=== PATIENT | male | born 1975 | race Caucasian/White ===

== ENCOUNTER 2016-10-23 14:24 | Emergency (ER) | payer OTHER ==
[2016-10-23 15:03] VITALS: BP 132/87
--- NOTE | 2016-10-23 15:09 | EDM.PDOC ---
ED HPI Trauma - General Chief Complaint: Lower Extremity Injury/Pain Stated Complaint: RIGHT KNEE INJURY Time Seen by Provider: 10/23/16 15:08 Source: Reports: Patient History Limitations: Reports: No limitations - History of Present Illness INITIAL COMMENTS - FREE TEXT/NARRATIVE: Patient is a 41-year-old male who presents the ED complaining of right medial knee discomfort. Yesterday with walking he felt a popping/clicking sensatoin with moderate discomfort to the medial aspect of right knee increased with weightbearing. There is no pain with flexion extension at the knee. He has minimal pain at rest. He's been taking Tylenol and ibuprofen with minimal relief. He has been applying warm compresses and ice also. States pain is minimal with nonweightbearing. Presents to the ED utilizing one crutch with weight placement to the affected knee. States approximately 3 wks ago he was seen by Dr. Martin [facility] and had right knee injection. He's been told he has degenerative joint disease and requires knee replacement in the future. Denies any swelling, bruising, recent trauma, or any additional complaints. Occurred When: yesterday Occurred Where: other Method of Injury: other (walking) Severity: moderate (With weightbearing) Pain/Injury Location: Reports: lower extremity, right (Knee) Associated Symptoms: Reports: trouble walking (Secondary to pain to the right medial aspect of the knee.) Allergies/ADRs: Allergies Iodinated Contrast Media - Oral and [Iodinated Contrast Media - IV Dye] Allergy (Mild, Verified 09/24/16 17:51) Itching Mild itching around eyes/face after injecting tramadol Allergy (Verified 09/24/16 17:51) Chest Tightness colcichine Allergy (Uncoded 09/15/16 20:52) Other Home Medications: Ambulatory Orders Methylphenidate [Concerta] 54 mg PO DAILY 12/23/14 [Confirmed 10/23/16] Omeprazole 20 mg PO DAILY 12/23/14 [Confirmed 10/23/16] Venlafaxine [Effexor XR] 150 mg PO DAILY 12/23/14 [Confirmed 10/23/16] Losartan [Cozaar] 25 mg PO DAILY 12/09/15 [Confirmed 10/23/16] Allopurinol. 300 mg PO DAILY 02/20/16 [Confirmed 10/23/16] Ibuprofen [Motrin] 800 mg PO Q8H PRN #20 tablet 02/22/16 [Confirmed 10/23/16] Diltiazem [Cardizem CD] 240 mg PO ONETIME #1 cap.cd 03/27/16 [Confirmed 10/23/16 ] Gabapentin [Neurontin] 600 mg PO TID #90 cap 04/03/16 [Confirmed 10/23/16] Rosuvastatin Calcium [Crestor] 40 mg PO DAILY 08/21/16 [Confirmed 09/24/16] Testosterone Micronized 200 unit IM ASDIRECTED 08/21/16 [Confirmed 10/23/16] Past Medical History HEENT History: Reports: Sinusitis Cardiovascular History: Reports: High cholesterol, Hypertension Respiratory History: Reports: Sleep apnea Gastrointestinal History: Reports: GERD Genitourinary History: Reports: None Musculoskeletal History: Reports: Back pain, chronic, Gout Neurological History: Reports: None Psychiatric History: Reports: Anxiety, Depression Endocrine/Metabolic History: Reports: Obesity/BMI 30+ Hematologic History: Reports: None Immunologic History: Reports: None Oncologic (Cancer) History: Reports: None Dermatologic History: Reports: None - Infectious Disease History Infectious Disease History: Reports: Chicken pox, Measles - Past Surgical History HEENT Surgical History: Reports: Adenoidectomy, Tonsillectomy GI Surgical History: Reports: Hernia, abdominal Neurological Surgical History: Reports: Lumbar spine Musculoskeletal Surgical History: Reports: Arthroscopic knee, Shoulder surgery Social & Family History - Family History Family Medical History: Noncontributory - Tobacco Use Smoking Status *Q: Current Every Day Smoker Years of Tobacco use: 12 Packs/Tins Daily: 1 Used Tobacco, but Quit: Yes Month Tobacco Last Used: 1 Second Hand Smoke Exposure: No - Caffeine Use Caffeine Use: Reports: Coffee, Energy drinks, Soda, Tea - Alcohol Use Days Per Week of Alcohol Use: 4 Number of Drinks Per Day: 3 Total Drinks Per Week: 12 - Recreational Drug Use Recreational Drug Use: No - Living Situation & Occupation Living situation: Reports: , with spouse, with family (2 kids) 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 Denies: joint swelling Skin: Denies: bruising, erythema Neurological: Reports: difficulty walking (Secondary to pain right knee). Denies: numbness, tingling Trauma Exam - Physical Exam Exam: See Below Exam Limited By: No limitations General Appearance: Reports: alert, WD/WN, mild distress Ears: Reports: hearing grossly normal Nose: Reports: normal inspection Throat/Mouth: Reports: Normal voice, No airway compromise Neck: Reports: normal inspection Respiratory Exam: Reports: no respiratory distress, lungs clear, normal breath sounds, no accessory muscle use Cardiovascular: Reports: normal peripheral pulses, regular rate, rhythm, no murmur Extremities: Reports: other (Right knee: No swelling or bruising noted. Increased pain with palpation of the medial aspect the joint. No pain with flexion and extension of the knee. Increased pain medially with externally rotating the right leg with extension. 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 10/23/16 15:09 10/23/16 15:40 x-ray of the right knee did not elicit any acute bony abnormalities. Degenerative changes noted. Findings on examination concerning for meniscus injury. Patient has a history of degenerative joint disease requiring knee injections every [address] Martin at [facility]. Will discharge patient home with an Vinnie wrap applied to the right knee and set of crutches. Instructions as documented on discharge. Departure - Departure Time of Disposition: 15:41 Disposition: Home, Self-Care 01 Condition: good Clinical Impression: Knee pain, right Qualifiers: Chronicity: acute Qualified Code(s): M25.561 - Pain in right knee Instructions: Knee Pain Referrals: Marquise,Tamica M, [facility]NER [Primary Care Provider] - Marko Arevalo MD [Physician] - Andres Wagner MD [Physician] - Forms: ED Department Discharge, Return to Work/School Form Additional Instructions: As discussed x-ray of the right knee did not reveal any acute bony abnormalities. Degenerative changes noted. Will have you wear Vinnie wrap to the right knee with utilization of crutches until the discomfort subsided. Suggest nonweightbearing toe-touch only for balance for the next 3-5 days advancing weight as tolerated. Apply ice to the affected areas 6 times daily, 20 minutes in duration, do not place ice directly on the skin. Elevate when able to reduce swelling and pain. Take Tylenol and ibuprofen alternating fashion for discomfort. Followup with orthopedic surgeon of your choice for further evaluation and treatment in the next 10-14 days. Return back to the ED for any new or worsening symptoms. - My Orders Last 24 Hours: My Active Orders 10/23/16 15:09 Knee Min 4V Rt [CR] Stat 10/23/16 15:47 DME for Discharge [COMM] Stat - Assessment/Plan Last 24 Hours: My Active Orders 10/23/16 15:09 Knee Min 4V Rt [CR] Stat 10/23/16 15:47 DME for Discharge [COMM] Stat
--- NOTE | 2016-10-24 07:08 | CR ---
Right knee: Four views of the right knee were obtained. Comparison: Previous right knee study of 06/22/15. Mild medial joint space narrowing is seen. Lateral joint space is preserved. No joint effusion is seen. No acute fracture or other bony abnormality is seen. Impression: 1. Mild medial joint space narrowing. 2. No additional abnormality is seen on right knee exam. Diagnostic code #2
== END 2016-10-23 16:15 | disposition home or self-care (01) ==
LOC: JD.ED 14:24
DX: M25.561 Pain in right knee (principal); I10 Essential (primary) hypertension; E78.00 Pure hypercholesterolemia, unspecified; G47.30 Sleep apnea, unspecified; K21.9 Gastro-esophageal reflux disease without esophagitis; F41.8 Other specified anxiety disorders; E66.9 Obesity, unspecified; Z79.899 Other long term (current) drug therapy; F17.210 Nicotine dependence, cigarettes, uncomplicated; Z88.5 Allergy status to narcotic agent; Z91.041 Radiographic dye allergy status; Z68.42 Body mass index [BMI] 45.0-49.9, adult
CPT/HCPCS: 73564-26-RT; 73564-RT; 99282; 99283

== ENCOUNTER 2016-12-23 11:46 | Emergency (ER) | payer OTHER ==
[2016-12-23 11:59] VITALS: BP 180/106
[2016-12-23] MEDS ORDERED: Ketorolac 60 MG/2 ML SDV IM ONE (12:36)
--- NOTE | 2016-12-23 12:45 | EDM.PDOC ---
ED HPI Trauma - General Chief Complaint: Upper Extremity Injury/Pain Stated Complaint: LEFT SHOULDER PAIN Time Seen by Provider: 12/23/16 12:20 Source: Reports: Patient History Limitations: Reports: No limitations - History of Present Illness INITIAL COMMENTS - FREE TEXT/NARRATIVE: Patient is a 41 y/o male who presents to the E.D. complaining of nontraumatic left shoulder pain. Pain is localized to the AC joint worsened with palpation and movement. States he was evaluated by Naren Camarillo and provided a prescription (narcotic) pain medications with no improvement to pain. Has been utilizing ibuprofen and tylenol with minimal improvement as well Ice and lidocaine patch. States he has appt with Dr. Martin this coming Friday. States he has no prior injury to affected shoulder. Denies any additional complaints. Severity: mild, moderate Pain/Injury Location: Reports: upper extremity, left Associated Symptoms: Reports: no other symptoms Allergies/ADRs: Allergies Iodinated Contrast Media - Oral and [Iodinated Contrast Media - IV Dye] Allergy (Mild, Verified 12/23/16 11:59) Itching Mild itching around eyes/face after injecting tramadol Allergy (Verified 12/23/16 11:59) Chest Tightness colcichine Allergy (Uncoded 12/23/16 11:59) Other Home Medications: Ambulatory Orders Methylphenidate [Concerta] 54 mg PO DAILY 12/23/14 [Confirmed 12/23/16] Omeprazole 20 mg PO DAILY 12/23/14 [Confirmed 12/23/16] Venlafaxine [Effexor XR] 150 mg PO DAILY 12/23/14 [Confirmed 12/23/16] Losartan [Cozaar] 25 mg PO DAILY 12/09/15 [Confirmed 12/23/16] Allopurinol. 300 mg PO DAILY 02/20/16 [Confirmed 12/23/16] Gabapentin [Neurontin] 600 mg PO TID #90 cap 04/03/16 [Confirmed 12/23/16] Rosuvastatin Calcium [Crestor] 40 mg PO DAILY 08/21/16 [Confirmed 12/23/16] Testosterone Micronized 200 unit IM ASDIRECTED 08/21/16 [Confirmed 12/23/16] Acetaminophen/HYDROcodone [[place] 325-5 MG] 1 tab PO Q4H PRN 12/23/16 [Confirmed 12/23/16] Cetirizine [ZyrTEC] 10 mg PO DAILY 12/23/16 [Confirmed 12/23/16] Diltiazem [Cardizem CD] 240 mg PO DAILY 12/23/16 [Confirmed 12/23/16] Ibuprofen 800 mg PO Q8HR PRN #15 tablet 12/23/16 Ibuprofen [Motrin] 600 mg PO Q8H PRN 12/23/16 [Confirmed 12/23/16] Past Medical History HEENT History: Reports: Sinusitis Cardiovascular History: Reports: High cholesterol, Hypertension Respiratory History: Reports: Sleep apnea Gastrointestinal History: Reports: GERD Genitourinary History: Reports: None Musculoskeletal History: Reports: Back pain, chronic, Gout, Other (see below) Other Musculoskeletal History: shoulder pain Neurological History: Reports: None Psychiatric History: Reports: Anxiety, Depression Endocrine/Metabolic History: Reports: Obesity/BMI 30+ Hematologic History: Reports: None Immunologic History: Reports: None Oncologic (Cancer) History: Reports: None Dermatologic History: Reports: None - Infectious Disease History Infectious Disease History: Reports: Chicken pox, Measles - Past Surgical History HEENT Surgical History: Reports: Adenoidectomy, Tonsillectomy GI Surgical History: Reports: Hernia, abdominal Neurological Surgical History: Reports: Lumbar spine Musculoskeletal Surgical History: Reports: Arthroscopic knee, Shoulder surgery Social & Family History - Family History Family Medical History: Noncontributory - Tobacco Use Smoking Status *Q: Current Every Day Smoker Years of Tobacco use: 10 Packs/Tins Daily: 1 Used Tobacco, but Quit: Yes Month Tobacco Last Used: 1 Second Hand Smoke Exposure: No - Caffeine Use Caffeine Use: Reports: Soda - Alcohol Use Days Per Week of Alcohol Use: 4 Number of Drinks Per Day: 3 Total Drinks Per Week: 12 - Recreational Drug Use Recreational Drug Use: No - Living Situation & Occupation Living situation: Reports: , with spouse, with family (2 kids) 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 Denies: arm pain Neurological: Denies: Numbness, Tingling, Weakness Trauma Exam - Physical Exam Exam: See Below Exam Limited By: No limitations General Appearance: Reports: alert, WD/WN, no apparent distress Head: Reports: atraumatic, normocephalic Ears: Reports: hearing grossly normal Nose: Reports: normal inspection Throat/Mouth: Reports: Normal voice, No airway compromise Neck: Reports: non-tender, full range of motion, normal alignment, normal inspection Respiratory Exam: Reports: no respiratory distress, lungs clear, normal breath sounds, no accessory muscle use, chest non-tender Cardiovascular: Reports: normal peripheral pulses, regular rate, rhythm Extremities: Reports: no evidence of injury, normal range of motion, pain with movement (flexion/extension/abduction/adduction of the left shoulder/arm. Pin point tenderness to AC joint with no swelling, asymmetry, bruising present. ), tenderness Neurologic: Reports: no motor/sensory deficits, alert, normal mood/affect, oriented x 3 Skin: Reports: Normal color, Warm/dry Course - Vital Signs Last Recorded V/S: Last Vital Signs Temp 97.7 F 12/23/16 11:53 Pulse 92 12/23/16 11:53 Resp 18 12/23/16 11:53 BP 180/106 H 12/23/16 11:53 Pulse Ox 97 12/23/16 11:53 - Orders/Labs/Meds Orders: Active Orders 24 hr Category Date Time Status DME for Discharge [COMM] Stat Oth 12/23/16 12:37 Ordered Meds: Medications Discontinued Medications Generic Name Dose Route Start Last Admin Trade Name Freq PRN Reason Stop Dose Admin Ketorolac Tromethamine 60 mg 12/23/16 12:36 12/23/16 12:54 Toradol IM 12/23/16 12:37 60 mg ONETIME ONE Administration - Re-Assessments/Exams Free Text/Narrative Re-Assessment/Exam: 12/23/16 12:37 Physical examination elicited pain to the AC joint. Positive santoro and neers test. No weakness noted to the left shoulder in comparison to the right. No giving out noted. Negative drop arm or empty the can test. Ordered toradol 60mg IM. Will discharge patient home with sling and prescription for ibuprofen 800mg PO. Departure - Departure Time of Disposition: 12:45 Disposition: Home, Self-Care 01 Condition: good Clinical Impression: Impingement syndrome, shoulder, left Prescriptions: Ibuprofen 800 mg PO Q8HR PRN #15 tablet PRN Reason: Pain Instructions: Impingement Syndrome, Rotator Cuff, Bursitis With Rehab-SportsMed Referrals: Tamica Camarillo NP [Primary Care Provider] - Forms: ED Department Discharge Additional Instructions: Take the ibuprofen as prescribed for pain. Take tylenol as well in alternating fashion. Utilize ice to the affected area as needed. Refrain from any activities that cause worsening pain. Utilize the sling for the next three days taking it off while resting, showering, and sleeping. Keep appointment with Dr. Newberry as scheduled for this week. See PCP for further pain complaints. Take ibuprofen with food. If develop stomach irritation take pepcid daily. Return to the E.D. as needed for any new or worsening symptoms. - My Orders Last 24 Hours: My Active Orders 12/23/16 12:37 DME for Discharge [COMM] Stat - Assessment/Plan Last 24 Hours: My Active Orders 12/23/16 12:37 DME for Discharge [COMM] Stat
== END 2016-12-23 13:15 | disposition home or self-care (01) ==
LOC: JD.ED 11:46
DX: M75.42 Impingement syndrome of left shoulder (principal); F17.210 Nicotine dependence, cigarettes, uncomplicated; I10 Essential (primary) hypertension; E78.00 Pure hypercholesterolemia, unspecified; G47.30 Sleep apnea, unspecified; K21.9 Gastro-esophageal reflux disease without esophagitis; F41.8 Other specified anxiety disorders; E66.9 Obesity, unspecified; Z79.899 Other long term (current) drug therapy; Z98.890 Other specified postprocedural states; Z88.5 Allergy status to narcotic agent; Z88.8 Allergy status to other drugs, medicaments and biological substances; Z91.041 Radiographic dye allergy status
CPT/HCPCS: 96372; 99283; J1885

== ENCOUNTER 2017-02-13 06:12 | Day surgery (SDC) | payer OTHER ==
[~2017-02-13 06:12] MED LIST: Lactated Ringers 1,000 ML IV SCH; Lidocaine 1%/Sod Bicarbonate in NS 8.4% 1 ML Syringe PRN; Sodium Chloride 0.9% 10 ML Syringe FLUSH PRN
[2017-02-13] MEDS ORDERED: Propofol 200 MG/20 ML SDV ONE ×2 (06:23→07:41)
[2017-02-13] MEDS ORDERED: fentaNYL 100 MCG/2 ML SDV ONE ×2 (06:24→07:15)
[2017-02-13] MEDS ORDERED: Midazolam 1 MG/ML 2 ML SDV ONE ×2 (06:24→07:09)
[2017-02-13] MEDS ORDERED: Lidocaine 1% 50 ML MDV ONE (06:42)
[2017-02-13] MEDS ORDERED: Bupivacaine 0.25% 30 ML SDV ONE (06:43)
--- NOTE | 2017-02-13 06:43 | PCM.PREANE ---
Preanesthetic Assessment - Procedure Proposed Procedure: Bilateral carpal tunnel release - Anesthesia/Transfusion/Family Hx Anesthesia History: Prior Anesthesia Without Reaction Family History of Anesthesia Reaction: No Transfusion History: No Prior Transfusion(s) Intubation History: History of Difficulty Intubation (hx of "small wind pipe", have "to use a womens breathing tube." ) - Review of Systems General: No Symptoms Pulmonary: Shortness of Breath, Cough Cardiovascular: No Symptoms Gastrointestinal: No symptoms Neurological: No Symptoms Other: Reports: None - Physical Assessment NPO Status Date: 02/12/17 NPO Status Time: 19:00 Pulse: 102 O2 Sat by Pulse Oximetry: 95 Respiratory Rate: 17 Blood Pressure: 158/95 Temperature: 36.5 C Height: 1.78 m Weight: 150.139 kg ASA Class: 2 Mental Status: Alert & Oriented x3 Airway Class: Mallampati = 2 Dentition: Reports: Normal Dentition Thyro-Mental Finger Breadths: 3 Mouth Opening Finger Breadths: 3 ROM/Head Extension: Full Lungs: Clear to auscultation, Normal respiratory effort Cardiovascular: Regular Rate, Regular Rhythm - Allergies Allergies/Adverse Reactions: Allergies Allergy/AdvReac Type Severity Reaction Status Date / Time Iodinated Contrast- Oral and Allergy Mild Itching Verified 02/12/17 13:43 IV Dye [Iodinated Contrast Media - IV Dye] colchicine Allergy Other Verified 02/12/17 13:43 tramadol Allergy Other Verified 02/12/17 13:43 - Blood Blood Available: No Product(s) Available: None - Acknowledgements Anesthesia Type Planned: MAC Pt an Appropriate Candidate for the Planned Anesthesia: Yes Alternatives and Risks of Anesthesia Discussed w Pt/Guardian: Yes Pt/Guardian Understands and Agrees with Anesthesia Plan: Yes PreAnesthesia Questionnaire HEENT History: Reports: Allergic Rhinitis, Sinusitis, Other (See Below) Other HEENT History: TMJ Cardiovascular History: Reports: High Cholesterol, Hypertension Respiratory History: Reports: SOB Other Respiratory History: Costochondral pain Gastrointestinal History: Reports: Other (See Below) Other Gastrointestinal History: Left upper quadrant abdominal pain Genitourinary History: Reports: None Other Genitourinary History: Testicular hypofunction Musculoskeletal History: Reports: Back Pain, Chronic, Gout, Other (See Below) Other Musculoskeletal History: Cubital tunnel syndrome, right knee pain, acute medial meniscus tear Neurological History: Reports: None Psychiatric History: Reports: ADD, Depression Endocrine/Metabolic History: Reports: Hypothyroidism, Vitamin D Deficiency, Other (See Below) Other Endocrine/Metabolic History: Thyroid nodule, elevated parathyroid hormone Hematologic History: Reports: None Immunologic History: Reports: None Oncologic (Cancer) History: Reports: None Dermatologic History: Reports: Other (See Below) Other Dermatologic History: Pilonidal cyst - Infectious Disease History Infectious Disease History: Reports: None - Past Surgical History Head Surgeries/Procedures: Reports: None HEENT Surgical History: Reports: Adenoidectomy, Tonsillectomy Cardiovascular Surgical History: Reports: None Respiratory Surgical History: Reports: None GI Surgical History: Reports: Hernia, Abdominal Male Surgical History: Reports: None Endocrine Surgical History: Reports: None Neurological Surgical History: Reports: None Musculoskeletal Surgical History: Reports: Arthroscopic Knee, Shoulder Surgery Oncologic Surgical History: Reports: None Dermatological Surgical History: Reports: None - SUBSTANCE USE Smoking Status *Q: Current Every Day Smoker Tobacco Use Within Last Twelve Months: Snuff/Dip Second Hand Smoke Exposure: No Days Per Week of Alcohol Use: 7 Number of Drinks Per Day: 4 Total Drinks Per Week: 28 Recreational Drug Use History: No - HOME MEDS Home Medications: Home Meds Methylphenidate [Concerta] 54 mg PO DAILY 12/23/14 [History] Omeprazole 20 mg PO DAILY 12/23/14 [History] Venlafaxine [Effexor XR] 150 mg PO DAILY 12/23/14 [History] Losartan [Cozaar] 25 mg PO BEDTIME 12/09/15 [History] Gabapentin [Neurontin] 600 mg PO TID #90 cap 04/03/16 [Rx] Testosterone Micronized 200 unit IM ASDIRECTED 08/21/16 [History] Cetirizine [ZyrTEC] 10 mg PO BEDTIME 12/23/16 [History] Diltiazem [Cardizem CD] 240 mg PO DAILY 12/23/16 [History] Ibuprofen [Motrin] 600 mg PO Q8H PRN 12/23/16 [History] Acetaminophen [Tylenol Extra Strength] 500 - 1,000 mg PO Q4H PRN 02/12/17 [ History] Albuterol Sulfate [Proair Respiclick] 2 puff IH Q4H PRN 02/12/17 [History] Allopurinol [Zyloprim] 300 mg PO BEDTIME 02/12/17 [History] Budesonide/Formoterol [Symbicort 160-4.5 MCG] 2 puff INH BID 02/12/17 [History] Rosuvastatin Calcium [Crestor] 40 mg PO BEDTIME 02/12/17 [History] atorvaSTATin [Lipitor] 10 mg PO BEDTIME 02/12/17 [History] - CURRENT (IN HOUSE) MEDS Current Meds: Current Medications Lactated Ringer's (Ringers, Lactated) 1,000 mls @ 125 mls/hr IV ASDIRECTED ALIN Stop: 02/13/17 23:00 Lidocaine/Sodium Bicarbonate (Buffered Lidocaine 1% In Ns 8.4%) 0.25 ml .XX ONETIME PRN PRN Reason: Prior to IV Start Stop: 02/13/17 18:00 Sodium Chloride (Saline Flush) 10 ml FLUSH ASDIRECTED PRN PRN Reason: Keep Vein Open Stop: 02/13/17 18:00 Discontinued Medications Fentanyl (Sublimaze) Confirm Administered Dose 100 mcg .ROUTE .STK-MED ONE Stop: 02/13/17 06:25 Midazolam HCl (Versed 1 Mg/Ml) Confirm Administered Dose 2 mg .ROUTE .STK-MED ONE Stop: 02/13/17 06:25 Propofol (Diprivan 20 Ml) Confirm Administered Dose 400 mg .ROUTE .STK-MED ONE Stop: 02/13/17 06:24
--- NOTE | 2017-02-13 08:02 | PCM48HPAN ---
Post Anesthesia Note - EVALUATION WITHIN 48HRS OF ANESTHETIC Vital Signs in Normal Range: Yes Patient Participated in Evaluation: Yes Respiratory Function Stable: Yes Airway Patent: Yes Cardiovascular Function Stable: Yes Hydration Status Stable: Yes Pain Control Satisfactory: Yes Nausea and Vomiting Control Satisfactory: Yes Mental Status Recovered: Yes
[2017-02-13 08:13] VITALS: BP 135/93
[2017-02-13] MEDS ORDERED: Acetaminophen/HYDROcodone 325-5 MG Tab PO ONE (09:15)
--- NOTE | 2017-02-14 12:51 | PCM.OPNOTE ---
- General Post-Op/Procedure Note Date of Surgery/Procedure: 02/13/17 Operative Procedure(s): bilateral carpal tunnel release Pre Op Diagnosis: bilateral median nerve compression neuropathy Post-Op Diagnosis: Same Anesthesia Technique: Local, MAC Primary Surgeon: Marko Arevalo Anesthesia Provider: Luiz Cristobal Vocational Nurse Lvn: Teena Ruiz EBL in mLs: 5 Complications: None Condition: Good
--- NOTE | 2017-02-14 14:03 | OR ---
DATE OF OPERATION: 02/13/2017 SURGEON: Marko Arevalo MD OPERATION PERFORMED: Bilateral carpal tunnel release. PREOPERATIVE DIAGNOSIS: Bilateral median nerve compression neuropathy. POSTOPERATIVE DIAGNOSIS: Bilateral median nerve compression neuropathy. ANESTHESIA: Local MAC. ANESTHESIA PROVIDER: Luiz Cristobal. PRODUCE LABORER: Teena Ruiz PA-C. ESTIMATED BLOOD LOSS: Less than 5 mL. COMPLICATIONS: None. CONDITION: Stable. DESCRIPTION OF PROCEDURE: The patient was identified in the preoperative holding area. Proper site was marked and identified by the surgeon. The patient was taken back to the operating theater, where after adequate anesthesia, the patient's bilateral upper extremities were sterilely prepped and draped in the usual sterile fashion. OR time-out was performed. The patient did not receive antibiotics as it is not indicated for soft tissue hand procedure. At this time, the right upper extremity had an Esmarch used as a tourniquet on the forearm and then using 0.25% Marcaine without epinephrine and 1% lidocaine without epinephrine, the palmar cutaneous branch of the median nerve was anesthetized along with the incisional area using Spencer cardinal line and ulnar border of the fourth digit. Once this had set up, incision was made. Blunt dissection was taken down to palmar cutaneous fascia. Palmar cutaneous fascia was then incised with a [place] blade. Transverse carpal ligament was identified and a small rent was made in the transverse carpal ligament. A [place] elevator was placed below the transverse carpal ligament and the [place] blade was used for release of the transverse carpal ligament distally. At this time, it was found to be released all the way distally stopping short of the palmar fat. At this time, attention was turned proximally. Using a tenotomy scissors, the superficial forearm fascia and transverse carpal ligament were resected under direct visualization and making sure to keep the tips ulnar to protect the palmar cutaneous branch of the median nerve. At this time, it was found to be adequately released both proximally and distally. Adequate saline was irrigated through the wound, 4-0 nylon simple suture was used for closure of the skin. The patient had a sterile soft dressing. Attention was then turned to the left wrist. Again, same anesthetization procedure was used. Incision was then made down to the palmar cutaneous fascia. Palmar cutaneous fascia was incised with a [place] blade. Again transverse carpal ligament had a small rent in it. A [place] elevator was placed underneath and the transverse carpal ligament was released all the way distally. Again, in similar technique as before the proximal portion was released using a tenotomy scissors keeping the tips ulnar, was found to be adequately released on the left side, adequate saline was irrigated through the wound and 4-0 nylon simple suture was used for closure of the skin. The patient tolerated the procedure well and sent to PACU in stable condition. WHITNEY /[id number]
== END 2017-02-13 08:36 | disposition home or self-care (01) ==
LOC: JD.SDS 06:12
PROVIDERS: ATTEND Orthopaedic Surgery
DX: G56.01 Carpal tunnel syndrome, right upper limb (principal); G56.02 Carpal tunnel syndrome, left upper limb; Z88.8 Allergy status to other drugs, medicaments and biological substances; Z91.041 Radiographic dye allergy status; I10 Essential (primary) hypertension; E78.5 Hyperlipidemia, unspecified; E03.9 Hypothyroidism, unspecified; F32.9 Major depressive disorder, single episode, unspecified; Z98.890 Other specified postprocedural states; Z79.899 Other long term (current) drug therapy; Z91.09 Other allergy status, other than to drugs and biological substances; Z87.891 Personal history of nicotine dependence
CPT/HCPCS: 64721; A9270; J2250; J3010; J7120; 01810; J2704; J3490

== ENCOUNTER 2017-02-14 10:52 | Emergency (ER) | payer OTHER ==
--- NOTE | 2017-02-14 11:27 | EDM.PDOC ---
ED HPI GENERAL MEDICAL PROBLEM - General Chief Complaint: Upper Extremity Injury/Pain Stated Complaint: Right wrist pain Time Seen by Provider: 02/14/17 11:10 Source of Information: Reports: Patient, Provider (Dr. Arevalo called with report) , RN Notes Reviewed History Limitations: Reports: No Limitations - History of Present Illness INITIAL COMMENTS - FREE TEXT/NARRATIVE: 41 year old male presents to the ED today with complaints of right wrist pain. He had bilateral carpal tunnel surgery with Dr. Arevalo yesterday. He was prescribed 10 Buchanan 5/325 tablets and took all 10 tabs yesterday. He has swelling and pain to the right hand. No numbness or tingling. He's been icing and elevating with minimal relief. He's also on a steroid taper. He has called Dr. Arevalo's office to notify them of his pain. Dr. Arevalo also called and gave report to Dr. Rasheed. The surgery reportedly went well with no concerns. Treatments [employer] FIN[employer]ER: Reports: Other (see below) Other Treatments [employer]: hydro-last used at 2300; had 3 prednisone today Right Hand Pain Score (Numeric/FACES): 10 - Related Data Allergies Allergy/AdvReac Type Severity Reaction Status Date / Time Iodinated Contrast- Oral and Allergy Mild Itching Verified 02/13/17 06:52 IV Dye [Iodinated Contrast Media - IV Dye] colchicine Allergy Other Verified 02/13/17 06:52 tramadol Allergy Other Verified 02/13/17 06:52 Home Meds: Home Meds Methylphenidate [Concerta] 54 mg PO DAILY 12/23/14 [History] Omeprazole 20 mg PO DAILY 12/23/14 [History] Venlafaxine [Effexor XR] 150 mg PO DAILY 12/23/14 [History] Losartan [Cozaar] 25 mg PO BEDTIME 12/09/15 [History] Gabapentin [Neurontin] 600 mg PO TID #90 cap 04/03/16 [Rx] Testosterone Micronized 200 unit IM ASDIRECTED 08/21/16 [History] Cetirizine [ZyrTEC] 10 mg PO BEDTIME 12/23/16 [History] Diltiazem [Cardizem CD] 240 mg PO DAILY 12/23/16 [History] Ibuprofen [Motrin] 600 mg PO Q8H PRN 12/23/16 [History] Acetaminophen [Tylenol Extra Strength] 500 - 1,000 mg PO Q4H PRN 02/12/17 [ History] Albuterol Sulfate [Proair Respiclick] 2 puff IH Q4H PRN 02/12/17 [History] Allopurinol [Zyloprim] 300 mg PO BEDTIME 02/12/17 [History] Budesonide/Formoterol [Symbicort 160-4.5 MCG] 2 puff INH BID 02/12/17 [History] Rosuvastatin Calcium [Crestor] 40 mg PO BEDTIME 02/12/17 [History] atorvaSTATin [Lipitor] 10 mg PO BEDTIME 02/12/17 [History] Hydrocodone/Acetaminophen [Buchanan 5-325 Tablet] 1 - 2 each PO Q6H PRN #10 tablet 02/13/17 [Rx] Acetaminophen/HYDROcodone [Buchanan 325-5 MG] 1 tab PO Q6H PRN #10 tablet 02/14/17 [Rx] Past Medical History HEENT History: Reports: Allergic Rhinitis, Sinusitis, Other (See Below) Other HEENT History: TMJ Cardiovascular History: Reports: High Cholesterol, Hypertension Respiratory History: Reports: SOB Other Respiratory History: Costochondral pain Gastrointestinal History: Reports: Other (See Below) Other Gastrointestinal History: Left upper quadrant abdominal pain Genitourinary History: Reports: None Other Genitourinary History: Testicular hypofunction Musculoskeletal History: Reports: Back Pain, Chronic, Gout, Other (See Below) Other Musculoskeletal History: Cubital tunnel syndrome, right knee pain, acute medial meniscus tear Neurological History: Reports: None Psychiatric History: Reports: ADD, Depression Endocrine/Metabolic History: Reports: Hypothyroidism, Vitamin D Deficiency, Other (See Below) Other Endocrine/Metabolic History: Thyroid nodule, elevated parathyroid hormone Hematologic History: Reports: None Immunologic History: Reports: None Oncologic (Cancer) History: Reports: None Dermatologic History: Reports: Other (See Below) Other Dermatologic History: Pilonidal cyst - Infectious Disease History Infectious Disease History: Reports: None - Past Surgical History Head Surgeries/Procedures: Reports: None HEENT Surgical History: Reports: Adenoidectomy, Tonsillectomy Cardiovascular Surgical History: Reports: None Respiratory Surgical History: Reports: None GI Surgical History: Reports: Hernia, Abdominal Male Surgical History: Reports: None Endocrine Surgical History: Reports: None Neurological Surgical History: Reports: None Musculoskeletal Surgical History: Reports: Arthroscopic Knee, Carpal Tunnel, Shoulder Surgery Oncologic Surgical History: Reports: None Dermatological Surgical History: Reports: None Social & Family History - Family History Family Medical History: Noncontributory - Tobacco Use Smoking Status *Q: Current Every Day Smoker Years of Tobacco use: 10 Packs/Tins Daily: 1 Used Tobacco, but Quit: Yes Month Tobacco Last Used: 1 Second Hand Smoke Exposure: No - Caffeine Use Caffeine Use: Reports: Soda, Tea - Alcohol Use Days Per Week of Alcohol Use: 7 Number of Drinks Per Day: 4 Total Drinks Per Week: 28 - Recreational Drug Use Recreational Drug Use: No Drug Use in Last 12 Months: No - Living Situation & Occupation Living situation: Reports: , with Spouse, with Family Occupation: Employed Review of Systems - Review of Systems Review Of Systems: See Below Musculoskeletal: Reports: Arm Pain, Hand Pain, Joint Swelling Skin: Reports: Other (surgical incisions bilateral wrists) Neurological: Reports: No Symptoms. Denies: Numbness, Tingling, Weakness ED EXAM, GENERAL - Physical Exam Exam: See Below Exam Limited By: No Limitations General Appearance: Alert, Anxious, Moderate Distress, Obese Respiratory/Chest: No Respiratory Distress, Lungs Clear, Normal Breath Sounds Cardiovascular: Tachycardia Extremities: Other (Vinnie wraps in place to bilateral wrists. Post-op dressings are clean dry and intact. Neurovascular status intact. ) Neurological: Alert, Normal Cognition, No Motor/Sensory Deficits Psychiatric: Anxious, Tearful Skin Exam: Warm, Dry, Intact Course - Vital Signs Last Recorded V/S: Last Vital Signs Temp 97.3 F 02/14/17 11:10 Pulse 117 H 02/14/17 11:10 Resp 20 02/14/17 11:10 BP 181/103 H 02/14/17 11:10 Pulse Ox 98 02/14/17 11:10 - Re-Assessments/Exams Free Text/Narrative Re-Assessment/Exam: The patient is well known to the ED. [place] prescription registry shows that patient had Buchanan 5/325 #10 filled yesterday. The patient reports that he is out of those. No other recent opiate prescriptions on drug registry. He will be given another prescription for 10 Buchanan. I explained to the patient that this is a one time prescription and that we will not continue to prescribe pain medications for this problem. The patient was educated on supportive care, i.e. ice, elevation. He was instructed to f/u with Dr. Arevalo as directed. Departure - Departure Time of Disposition: 11:24 Disposition: Home, Self-Care 01 Condition: Good Clinical Impression: Right wrist pain, Carpal tunnel syndrome on both sides - Discharge Information Prescriptions: Acetaminophen/HYDROcodone [Buchanan 325-5 MG] 1 tab PO Q6H PRN #10 tablet PRN Reason: Pain Instructions: Carpal Tunnel Syndrome, Wrist Pain, [id number] Referrals: Marko Arevalo MD [Primary Care Provider] - Forms: ED Department Discharge Additional Instructions: Rest, ice and elevate Follow-up with Dr. Arevalo on Friday if not improved. Continue steroid pack as prescribed Hydrocodone/apap 1 tab every 6 hours as needed for pain Continue with post-operative instructions
== END 2017-02-14 11:33 | disposition home or self-care (01) ==
LOC: JD.ED 10:52
CPT/HCPCS: 99283

== ENCOUNTER 2017-06-16 10:56 | Emergency (ER) | payer OTHER ==
[2017-06-16 11:06] VITALS: BP 144/98
--- NOTE | 2017-06-16 11:47 | EDM.PDOC ---
ED HPI GENERAL MEDICAL PROBLEM - General Chief Complaint: Lower Extremity Injury/Pain Stated Complaint: RT KNEE PAIN Time Seen by Provider: 06/16/17 11:26 Source of Information: Reports: Patient History Limitations: Reports: No Limitations - History of Present Illness INITIAL COMMENTS - FREE TEXT/NARRATIVE: 42-year-old male presents for evaluation treatment of right knee pain. Reports that he has chronic right knee pain and problems. Has seen orthopedics for this. He has appointment with Dr. Martin in 8 AM on Friday; last appointment with ortho was about 6 months ago. He states that he can no longer take the pain. Reports that he's had 2 repairs of his medial meniscus. Reports no acute trauma. Reports over the weekend he was walking more than normal and developed worsening pain to his right knee. He also states he is having more pain in different areas to the right knee than normal. He also reports that he is hyperextending the knee when he walks. He has been taking Tylenol and Motrin without any symptom relief. Reports he has knee braces at home but states that they do not fit properly. He does have crutches at home but has not been using these. No numbness or tingling into the leg. Patient reports the knee has become swollen. No erythema or increased warmth. Location: Reports: Lower Extremity, Right Right Knee Pain Score (Numeric/FACES): 7 - Related Data Allergies Allergy/AdvReac Type Severity Reaction Status Date / Time Iodinated Contrast- Oral and Allergy Mild Itching Verified 06/16/17 11:06 IV Dye [Iodinated Contrast Media - IV Dye] colchicine Allergy Other Verified 06/16/17 11:06 tramadol Allergy Other Verified 06/16/17 11:06 Home Meds: Home Meds Methylphenidate [Concerta] 54 mg PO DAILY 12/23/14 [History] Omeprazole 20 mg PO DAILY 12/23/14 [History] Venlafaxine [Effexor XR] 150 mg PO DAILY 12/23/14 [History] Losartan [Cozaar] 25 mg PO BEDTIME 12/09/15 [History] Gabapentin [Neurontin] 600 mg PO TID #90 cap 04/03/16 [Rx] Diltiazem [Cardizem CD] 240 mg PO DAILY 12/23/16 [History] Ibuprofen [Motrin] 600 mg PO Q8H PRN 12/23/16 [History] Acetaminophen [Tylenol Extra Strength] 500 - 1,000 mg PO Q4H PRN 02/12/17 [ History] Albuterol Sulfate [Proair Respiclick] 2 puff IH Q4H PRN 02/12/17 [History] Allopurinol [Zyloprim] 300 mg PO BEDTIME 02/12/17 [History] Rosuvastatin Calcium [Crestor] 40 mg PO BEDTIME 02/12/17 [History] Benzonatate [Tessalon Perles] 100 mg PO QID PRN 06/16/17 [History] Codeine Phosphate/Guaifenesin [G Tussin AC Liquid] 5 ml PO BEDTIME PRN 06/16/17 [History] Meloxicam 7.5 mg PO DAILY #30 tablet 06/16/17 [Rx] Past Medical History HEENT History: Reports: Allergic Rhinitis, Sinusitis, Other (See Below) Other HEENT History: TMJ Cardiovascular History: Reports: High Cholesterol, Hypertension Respiratory History: Reports: SOB Other Respiratory History: Costochondral pain Gastrointestinal History: Reports: Other (See Below) Other Gastrointestinal History: Left upper quadrant abdominal pain Genitourinary History: Reports: None Other Genitourinary History: Testicular hypofunction Musculoskeletal History: Reports: Back Pain, Chronic, Gout, Other (See Below) Other Musculoskeletal History: Cubital tunnel syndrome, right knee pain, acute medial meniscus tear Neurological History: Reports: None Psychiatric History: Reports: ADD, Depression Endocrine/Metabolic History: Reports: Hypothyroidism, Vitamin D Deficiency, Other (See Below) Other Endocrine/Metabolic History: Thyroid nodule, elevated parathyroid hormone Hematologic History: Reports: None Immunologic History: Reports: None Oncologic (Cancer) History: Reports: None Dermatologic History: Reports: Other (See Below) Other Dermatologic History: Pilonidal cyst - Infectious Disease History Infectious Disease History: Reports: None - Past Surgical History Head Surgeries/Procedures: Reports: None HEENT Surgical History: Reports: Adenoidectomy, Tonsillectomy Cardiovascular Surgical History: Reports: None Respiratory Surgical History: Reports: None GI Surgical History: Reports: Hernia, Abdominal Male Surgical History: Reports: None Endocrine Surgical History: Reports: None Neurological Surgical History: Reports: None Musculoskeletal Surgical History: Reports: Arthroscopic Knee, Carpal Tunnel, Shoulder Surgery Oncologic Surgical History: Reports: None Dermatological Surgical History: Reports: None Social & Family History - Family History Family Medical History: Noncontributory - Tobacco Use Smoking Status *Q: Never Smoker Years of Tobacco use: 10 Packs/Tins Daily: 1 Used Tobacco, but Quit: Yes Month Tobacco Last Used: 1 Second Hand Smoke Exposure: No - Caffeine Use Caffeine Use: Reports: Coffee, Soda - Alcohol Use Days Per Week of Alcohol Use: 7 Number of Drinks Per Day: 4 Total Drinks Per Week: 28 - Recreational Drug Use Recreational Drug Use: No Drug Use in Last 12 Months: No - Living Situation & Occupation Living situation: Reports: , with Spouse, with Family Occupation: Employed Review of Systems - Review of Systems Review Of Systems: See Below Musculoskeletal: Reports: Joint Swelling (right knee ), Other (no increased warmth to the right knee) Skin: Denies: Erythema, Wound Neurological: Denies: Numbness, Tingling ED EXAM, GENERAL - Physical Exam Exam: See Below Exam Limited By: No Limitations General Appearance: Alert, WD/WN, No Apparent Distress, Obese Respiratory/Chest: No Respiratory Distress Extremities: Joint Swelling (right superior lateral knee), Other (reports tenderness to palpation to the entire right knee; laxity appreciated with anterior drawer testing, reports pain with anterior drawer, posterior drawer, valgus, varus and apleys grind testing; able to fully flex the right knee, anle to fully extend the knee) Neurological: Alert Psychiatric: Normal Affect, Normal Mood Skin Exam: Warm, Dry, Normal Color. No: Ecchymosis, Erythema Course - Vital Signs Last Recorded V/S: Last Vital Signs Temp 36.0 C 06/16/17 11:04 Pulse 101 H 06/16/17 11:04 Resp 16 06/16/17 11:04 BP 144/98 H 06/16/17 11:04 Pulse Ox 96 06/16/17 11:04 - Re-Assessments/Exams Free Text/Narrative Re-Assessment/Exam: 06/16/17 11:42 Given this is a chronic problem he has not any new injury a do not feel that an x-ray of the any additional information this time. We do not have any MRIs of his knee on file. He has an appointment with Dr. Martin on Friday. Encouraged him to see Dr. Martin earlier for possibly another cortisone injection. I will leave it up to Dr. Martin if he feels that is necessary to order another MRI. given this is a chronic medical problem we do not prescribe narcotics in the ER for chronic medical problems. Departure - Departure Time of Disposition: 11:43 Disposition: Home, Self-Care 01 Condition: Fair Clinical Impression: Right knee pain Qualifiers: Chronicity: acute Qualified Code(s): M25.561 - Pain in right knee - Discharge Information Prescriptions: Meloxicam 7.5 mg PO DAILY #30 tablet Instructions: Knee Pain Referrals: Tamica Camarillo FRE[employer] CONDUCTOR [Primary Care Provider] - Forms: ED Department Discharge Additional Instructions: Go to [facility] and get a hinged knee brace. Use crutches. Rest. Ice 4 to 6 times a day for 10-15 minutes. Meloxicam 1 tab daily. This has been escribed to the medicine shop. may take [id number] Tylenol with this for additional pain relief. Do not take more than 4 g of Tylenol from all sources in [address] Martin and see if you can be seen earlier than Friday otherwise follow-up Friday as planned. Please return to ER for symptoms change or worsen.
== END 2017-06-16 11:56 | disposition home or self-care (01) ==
LOC: JD.ED 10:56
DX: M25.561 Pain in right knee (principal); I10 Essential (primary) hypertension; E03.9 Hypothyroidism, unspecified; Z79.899 Other long term (current) drug therapy; Z88.6 Allergy status to analgesic agent; Z88.8 Allergy status to other drugs, medicaments and biological substances; Z91.041 Radiographic dye allergy status
CPT/HCPCS: 99283

== ENCOUNTER 2017-06-30 06:48 | Emergency (ER) | payer OTHER ==
[2017-06-30 07:12] VITALS: BP 141/81
[2017-06-30] MEDS ORDERED: Sodium Chloride 0.9% 1,000 ML IV SCH (10:30)
[2017-06-30] MEDS ORDERED: diphenhydrAMINE 50 MG/ML SDV IVPUSH ONE (10:34)
--- NOTE | 2017-06-30 10:36 | EDM.PDOC ---
ED HPI GENERAL MEDICAL PROBLEM - General Chief Complaint: Back Pain or Injury Stated Complaint: L SIDE PAIN Time Seen by Provider: 06/30/17 07:14 Source of Information: Reports: Patient, RN Notes Reviewed History Limitations: Reports: No Limitations - History of Present Illness INITIAL COMMENTS - FREE TEXT/NARRATIVE: The patient states that he developed left flank pain this past Friday, 2016. Is sharp and piercing in character. It is constant - the patient Has not identified any modifiers. No recent fever. No recent nausea, vomiting, cause patient, or diarrhea. He states that his urine appears darker, but otherwise he has not experienced any dysuria or urinary frequency. He states that he feels generally weak. The patient's PCP is Ethel Camarillo. Left Flank Pain Score (Numeric/FACES): 8 - Related Data Allergies Allergy/AdvReac Type Severity Reaction Status Date / Time Iodinated Contrast- Oral and Allergy Mild Itching Verified 06/30/17 07:12 IV Dye [Iodinated Contrast Media - IV Dye] colchicine Allergy Other Verified 06/30/17 07:12 tramadol Allergy Other Verified 06/30/17 07:12 Home Meds: Home Meds Methylphenidate [Concerta] 54 mg PO DAILY 12/23/14 [History] Omeprazole 20 mg PO DAILY 12/23/14 [History] Venlafaxine [Effexor XR] 150 mg PO DAILY 12/23/14 [History] Gabapentin [Neurontin] 600 mg PO TID #90 cap 04/03/16 [Rx] Diltiazem [Cardizem CD] 240 mg PO DAILY 12/23/16 [History] Albuterol Sulfate [Proair Respiclick] 2 puff IH Q4H PRN 02/12/17 [History] Allopurinol [Zyloprim] 300 mg PO BEDTIME 02/12/17 [History] Rosuvastatin Calcium [Crestor] 40 mg PO BEDTIME 02/12/17 [History] Cholecalciferol (Vitamin D3) [Vitamin D3] 5,000 unit PO DAILY 06/30/17 [History] Orphenadrine [Norflex] 1 tab PO Q12H #10 tab.er 06/30/17 [Rx] Past Medical History Cardiovascular History: Reports: High Cholesterol, Hypertension Respiratory History: Reports: Sleep Apnea Musculoskeletal History: Reports: Back Pain, Chronic, Gout (presumed) Psychiatric History: Reports: Anxiety, Depression Endocrine/Metabolic History: Reports: Obesity/BMI 30+ - Past Surgical History HEENT Surgical History: Reports: Adenoidectomy, Tonsillectomy GI Surgical History: Reports: Hernia, Abdominal Neurological Surgical History: Reports: Lumbar Spine Musculoskeletal Surgical History: Reports: Arthroscopic Knee (right, x 2), Carpal Tunnel (bilateral), Shoulder Surgery (right, 1 open, 7 arthroscopic), Other (See Below) (Right clavicle surgery. 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) ED ROS GENERAL - Review of Systems Review Of Systems: See Below Constitutional: Reports: No Symptoms HEENT: Reports: No Symptoms Respiratory: Reports: No Symptoms Cardiovascular: Reports: No Symptoms Endocrine: Reports: No Symptoms GI/Abdominal: Reports: No Symptoms : Reports: No Symptoms Musculoskeletal: Reports: No Symptoms Skin: Reports: No Symptoms Neurological: Reports: No Symptoms Psychiatric: Reports: No Symptoms Hematologic/Lymphatic: Reports: No Symptoms Immunologic: Reports: No Symptoms ED EXAM,LOWER BACK PAIN/INJURY - Physical Exam Exam: See Below Exam Limited By: No Limitations General Appearance: Alert, WD/WN, No Apparent Distress Eye Exam: Bilateral Eye: Normal Inspection Ears: Normal External Exam, Hearing Grossly Normal Nose: Normal Inspection, No Blood Throat/Mouth: Normal Inspection, Normal Lips, Normal Voice, No Airway Compromise Head: Atraumatic, Normocephalic Neck: Normal Inspection, Full Range of Motion Respiratory/Chest: No Respiratory Distress, Lungs Clear, Normal Breath Sounds, No Accessory Muscle Use Cardiovascular: Normal Peripheral Pulses, Regular Rate, Rhythm, No Gallop, No JVD, No Murmur, No Rub GI/Abdominal: Normal Bowel Sounds, Soft, Non-Tender, No Organomegaly, No Distention, No Abnormal Bruit, No Mass, Other (Obese) (Male) Exam: Deferred Rectal (Males) Exam: Deferred Back Exam: Normal Inspection, Full Range of Motion, Paraspinal Tenderness (left , mild). No: CVA Tenderness (L), CVA Tenderness (R) Extremities: Normal Inspection, Normal Range of Motion, No Pedal Edema, Normal Capillary Refill Neurological: Alert, No Motor/Sensory Deficits, Oriented x 3 Psychiatric: Normal Affect Skin Exam: Warm, Dry, Intact, Normal Color, No Rash Course - Vital Signs Last Recorded V/S: Last Vital Signs Temp 36.3 C 06/30/17 07:10 Pulse 101 H 06/30/17 07:10 Resp 18 06/30/17 07:10 BP 141/81 H 06/30/17 07:10 Pulse Ox 96 06/30/17 07:10 - Orders/Labs/Meds Labs: Laboratory Tests 06/30/17 06/30/17 06/30/17 Range/Units 09:50 10:45 10:45 WBC 9.64 H (4.23-9.07) K/mm3 RBC 5.76 (4.63-6.08) M/mm3 Hgb 15.7 (13.7-17.5) gm/L Hct 46.1 (40.1-51.0) % MCV 80.0 (79.0-92.2) fl MCH 27.3 (25.7-32.2) pg MCHC 34.1 (32.2-35.5) g/dl RDW Std Deviation 43.2 (35.1-43.9) fL Plt Count 279 (163-337) K/mm3 MPV 9.1 L (9.4-12.3) fl Neutrophils % (Manual) 65 H (40-60) % Band Neutrophils % 0 (0-10) % Lymphocytes % (Manual) 27 (20-40) % Atypical Lymphs % 0 % Monocytes % (Manual) 5 (2-10) % Eosinophils % (Manual) 3 (0.8-7.0) % Basophils % (Manual) 0 L (0.2-1.2) Platelet Estimate Adequate RBC Morph Comment Normal Sodium 137 (136-145) mEq/L Potassium 4.1 (3.5-5.1) mEq/L Chloride 102 (98-107) mEq/L Carbon Dioxide 23 (21-32) mEq/L Anion Gap 16.1 H (5-15) BUN 13 (7-18) mg/dL Creatinine 1.1 (0.7-1.3) mg/dL Est Cr Clr Drug Dosing 89.27 mL/min Estimated GFR (MDRD) > 60 (>60) mL/min BUN/Creatinine Ratio 11.8 L (14-18) Glucose 96 (74-106) mg/dL Calcium 9.3 (8.5-10.1) mg/dL Total Bilirubin 0.6 (0.2-1.0) mg/dL AST 27 (15-37) U/L ALT 55 (16-63) U/L Alkaline Phosphatase 73 (46-116) U/L Total Protein 7.7 (6.4-8.2) g/dl Albumin 3.9 (3.4-5.0) g/dl Globulin 3.8 gm/dL Albumin/Globulin Ratio 1.0 (1-2) Lipase 182 (73-393) U/L Urine Color Yellow (Yellow) Urine Appearance Clear (Clear) Urine pH 5.5 (5.0-8.0) Ur Specific [place] 1.025 (1.005-1.030) Urine Protein 1+ H (Negative) Urine Glucose (UA) Negative (Negative) Urine Ketones Negative (Negative) Urine Occult Blood Trace-lysed H (Negative) Urine Nitrite Negative (Negative) Urine Bilirubin Negative (Negative) Urine Urobilinogen 0.2 (0.2-1.0) Ur Leukocyte Esterase Negative (Negative) Urine RBC 0-5 (0-5) /hpf Urine WBC 0-5 (0-5) /hpf Ur Epithelial Cells 0-5 (0-5) /hpf Urine Bacteria Few (FEW) /hpf Urine Mucus Many H (FEW) /hpf Meds: Medications Discontinued Medications Generic Name Dose Route Start Last Admin Trade Name Freq PRN Reason Stop Dose Admin Diatrizoate Meglum/Diatrizoate Sod 120 ml 06/30/17 10:41 06/30/17 11:42 Gastrografin 37% PO 06/30/17 10:42 90 ml ONETIME ONE Administration Diphenhydramine HCl 50 mg 06/30/17 10:34 06/30/17 10:55 Benadryl IVPUSH 06/30/17 10:35 50 mg ONETIME ONE Administration Sodium Chloride 1,000 mls @ 150 mls/hr 06/30/17 10:30 06/30/17 10:55 Normal Saline IV 150 mls/hr ASDIRECTED ALIN Administration Sodium Chloride 100 mls @ 80 mls/hr 06/30/17 10:45 06/30/17 11:43 Normal Saline IV 80 mls/hr ASDIRECTED ALIN Administration Iopamidol 100 ml 06/30/17 10:41 06/30/17 11:43 Isovue-300 (61%) IVPUSH 06/30/17 10:42 100 ml ONETIME ONE Administration Orphenadrine Citrate 100 mg 06/30/17 12:33 06/30/17 12:40 Norflex PO 06/30/17 12:34 100 mg ONETIME STA Administration Sodium Chloride 10 ml 06/30/17 10:41 06/30/17 11:43 Saline Flush FLUSH 10 ml ONETIME PRN Administration IV FLUSH - Re-Assessments/Exams Free Text/Narrative Re-Assessment/Exam: 06/30/17 10:34 The patient is reporting left flank pain. He has mild tenderness to palpation of his left flank area, but no true CVA tenderness, and his abdominal exam is benign. A urinalysis was checked for blood, and is essentially normal. I have therefore ordered a CT of the abdomen and pelvis with oral and IV contrast, along with blood work. The patient's allergy list includes iodinated contrast - when asked about that, he stated that IV contrast causes his face to itch, but that he does not get hives. He states that he is able to tolerate the IV contrast if he receives Benadryl. I have therefore added IV Benadryl. 06/30/17 12:27 CT of the abdomen and pelvis with oral and IV contrast is read by Dr. Friedman as: 1. Nothing acute is appreciated on CT study of the abdomen and pelvis. No etiology is identified to explain the patient's left flank pain. 06/30/17 12:34 Test results discussed with the patient. Today's workup is entirely unremarkable , and does not explain the cause of the patient's pain. I can only speculate that it may be a muscle spasm, and am therefore recommending a prescription for Norflex. Departure - Departure Time of Disposition: 12:34 Disposition: Home, Self-Care 01 Condition: Good Clinical Impression: Left flank pain - Discharge Information Prescriptions: Orphenadrine [Norflex] 1 tab PO Q12H #10 tab.er Instructions: Flank Pain, [id number] Referrals: Tamica Camarillo, [facility] [Primary Care Provider] - Forms: ED Department Discharge Additional Instructions: You were seen in the emergency room for left flank pain since Friday, 2016. Workup in the ER included a CBC, CMP, lipase, a urinalysis, and a CT scan of your abdomen and pelvis with oral and IV contrast. Your entire workup was unremarkable, and does not explain the cause of your pain. It is possible that your pain is due to a muscle spasm. You have been started on the muscle relaxant medicine Norflex. Take one tablet every 12 hours, as prescribed. If your symptoms persist, we recommend that you follow-up with your PCP, Ethel Camarillo, for further evaluation. If any other problems, please do not hesitate to return to the ER.
[2017-06-30] MEDS ORDERED: Iopamidol 612 MG/ML 100 ML Bottle IVPUSH ONE (10:41)
[2017-06-30] MEDS ORDERED: Diatrizoate Meglumine/Diatrizoate Sodium 37% 120 ML Bottle PO ONE (10:41)
[2017-06-30] MEDS ORDERED: Sodium Chloride 0.9% 10 ML Syringe FLUSH PRN (10:41)
[2017-06-30] MEDS ORDERED: Sodium Chloride 0.9% 100 ML IV SCH (10:45)
--- NOTE | 2017-06-30 12:20 | CT ---
CT abdomen and pelvis Technique: Multiple axial sections were obtained from above the dome of the diaphragm inferiorly through the pubic symphysis. Intravenous and oral contrast was utilized. Delayed images were also obtained through the bladder. Comparison: Previous abdominal and pelvic CT exam of 06/28/16. Findings: Small portion of the visualized lung bases are clear. Fatty infiltration is seen within the liver. Spleen appears within normal limits. Adrenal glands show no nodule. Pancreas is within normal limits. Kidneys show symmetric contrast enhancement without hydronephrosis or mass. Gallbladder shows no calcified gallstones. Aorta shows no aneurysmal dilatation. No retroperitoneal adenopathy or mesenteric abnormalities are seen. Appendix is seen and appears within normal limits. No inflammatory change or free fluid is seen within the abdomen or within the pelvis. Delayed images shows contrast within distal ureters and within the bladder. Bone window settings were reviewed which appear within normal limits for the patient's age. Impression: 1. Nothing acute is appreciated on CT study of the abdomen and pelvis. No etiology is identified to explain the patient's left flank pain. Diagnostic code #1
[2017-06-30] MEDS ORDERED: Orphenadrine 100 MG Tab.ER PO STA (12:33)
== END 2017-06-30 12:44 | disposition home or self-care (01) ==
LOC: JD.ED 06:48
DX: R10.9 Unspecified abdominal pain (principal); I10 Essential (primary) hypertension; Z88.5 Allergy status to narcotic agent; Z79.899 Other long term (current) drug therapy
CPT/HCPCS: 36415; 74177; 80053; 81001; 83690; 85025; 96361; 96374; 99284; A9270; J1200; J7030; J7040; J7050; Q9963; Q9967

== ENCOUNTER 2017-08-23 07:05 | Emergency (ER) | payer OTHER ==
[2017-08-23 07:21] VITALS: BP 152/120
--- NOTE | 2017-08-23 07:27 | EDM.PDOC ---
ED HPI GENERAL MEDICAL PROBLEM - General Chief Complaint: Neck Problem Stated Complaint: NECK PAIN Time Seen by Provider: 08/23/17 07:23 - History of Present Illness INITIAL COMMENTS - FREE TEXT/NARRATIVE: 42-year-old male presents emergency room with neck ache. This is been going on for 2 days. Patient denies any trauma he thinks he slept on it wrong he awoke yesterday with neck pain this got worse through the course the day. He took a leftover muscle relaxant that starts with an oh last night he got a good nights sleep however he woke up this morning and his neck was still hurting. He also took some Tylenol and Motrin. He denies any other problems at this point Neck Pain Score (Numeric/FACES): 8 - Related Data Allergies Allergy/AdvReac Type Severity Reaction Status Date / Time Iodinated Contrast- Oral and Allergy Mild Itching Verified 08/23/17 07:15 IV Dye [Iodinated Contrast Media - IV Dye] colchicine Allergy Other Verified 08/23/17 07:15 tramadol Allergy Other Verified 08/23/17 07:15 Home Meds: Home Meds Methylphenidate [Concerta] 54 mg PO DAILY 12/23/14 [History] Omeprazole 20 mg PO DAILY 12/23/14 [History] Venlafaxine [Effexor XR] 150 mg PO DAILY 12/23/14 [History] Gabapentin [Neurontin] 600 mg PO TID #90 cap 04/03/16 [Rx] Diltiazem [Cardizem CD] 240 mg PO DAILY 12/23/16 [History] Albuterol Sulfate [Proair Respiclick] 2 puff IH Q4H PRN 02/12/17 [History] Allopurinol [Zyloprim] 300 mg PO BEDTIME 02/12/17 [History] Rosuvastatin Calcium [Crestor] 40 mg PO BEDTIME 02/12/17 [History] Cholecalciferol (Vitamin D3) [Vitamin D3] 5,000 unit PO DAILY 06/30/17 [History] Orphenadrine [Norflex] 1 tab PO Q12H #10 tab.er 06/30/17 [Rx] Cyclobenzaprine [Flexeril] 10 mg PO BEDTIME #5 tablet 08/23/17 [Rx] Past Medical History HEENT History: Reports: Allergic Rhinitis, Sinusitis, Other (See Below) Other HEENT History: TMJ Cardiovascular History: Reports: High Cholesterol, Hypertension Respiratory History: Reports: Sleep Apnea Other Respiratory History: Costochondral pain Gastrointestinal History: Reports: Other (See Below) Other Gastrointestinal History: Left upper quadrant abdominal pain Genitourinary History: Reports: None Other Genitourinary History: Testicular hypofunction Musculoskeletal History: Reports: Back Pain, Chronic, Gout (presumed) Other Musculoskeletal History: Cubital tunnel syndrome, right knee pain, acute medial meniscus tear Neurological History: Reports: None Psychiatric History: Reports: Anxiety, Depression Endocrine/Metabolic History: Reports: Obesity/BMI 30+ Other Endocrine/Metabolic History: Thyroid nodule, elevated parathyroid hormone Hematologic History: Reports: None Immunologic History: Reports: None Oncologic (Cancer) History: Reports: None Dermatologic History: Reports: Other (See Below) Other Dermatologic History: Pilonidal cyst - Infectious Disease History Infectious Disease History: Reports: None - Past Surgical History HEENT Surgical History: Reports: Adenoidectomy, Tonsillectomy GI Surgical History: Reports: Hernia, Abdominal Neurological Surgical History: Reports: Lumbar Spine Musculoskeletal Surgical History: Reports: Arthroscopic Knee (right, x 2), Carpal Tunnel (bilateral), Shoulder Surgery (right, 1 open, 7 arthroscopic), Other (See Below) (Right clavicle surgery. Neuostimulator implant.) Social & Family History - Family History Family Medical History: Noncontributory - Tobacco Use Smoking Status *Q: Never Smoker Years of Tobacco use: 10 Packs/Tins Daily: 1 Used Tobacco, but Quit: Yes Month Tobacco Last Used: 1 Second Hand Smoke Exposure: No - Caffeine Use Caffeine Use: Reports: Soda - Alcohol Use Days Per Week of Alcohol Use: 7 Number of Drinks Per Day: 4 Total Drinks Per Week: 28 - Recreational Drug Use Recreational Drug Use: No Drug Use in Last 12 Months: No - Living Situation & Occupation Living situation: Reports: , with Spouse, with Family (2 kids) 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) ED ROS GENERAL - Review of Systems Review Of Systems: See Below Constitutional: Reports: No Symptoms HEENT: Reports: No Symptoms Respiratory: Reports: No Symptoms Cardiovascular: Reports: No Symptoms GI/Abdominal: Reports: No Symptoms Neurological: Reports: No Symptoms ED EXAM, UPPER BACK/NECK PAIN - Physical Exam Exam: See Below Exam Limited By: No Limitations General Appearance: Alert, No Apparent Distress Head Exam: Atraumatic, Normocephalic Neck Exam: Normal Alignment, Normal Inspection, Muscle Spasm (Mild bilateral left more so than right), Painful Range of Motion, Spinous Processes Tender, Tender Midline. No: Paraspinous Muscle Tender Cardiovascular/Respiratory: Regular Rate, Rhythm, No M/R/G, Normal Breath Sounds , No Respiratory Distress Course - Vital Signs Last Recorded V/S: Last Vital Signs Temp 35.8 C 08/23/17 07:17 Pulse 97 08/23/17 07:17 Resp BP 152/120 H 08/23/17 07:17 Pulse Ox 97 08/23/17 07:17 - Orders/Labs/Meds Orders: Active Orders 24 hr Category Date Time Status Cervical Spine 2V or 3V [CR] Stat Exams 08/23/17 07:31 Taken Cervical Spine wo Cont [CT] Stat Exams 08/23/17 08:44 Taken Meds: Medications Discontinued Medications Generic Name Dose Route Start Last Admin Trade Name Freq PRN Reason Stop Dose Admin Cyclobenzaprine HCl 10 mg 08/23/17 08:43 08/23/17 08:51 Flexeril PO 08/23/17 08:44 10 mg ONETIME ONE Administration Ketorolac Tromethamine 60 mg 08/23/17 07:50 Toradol IM 08/23/17 07:51 ONETIME ONE Ketorolac Tromethamine 30 mg 08/23/17 08:43 08/23/17 08:49 Toradol IM 08/23/17 08:44 30 mg ONETIME ONE Administration - Re-Assessments/Exams Free Text/Narrative Re-Assessment/Exam: 08/23/17 09:54 Plain films of the C-spine were incomplete because of the patient's body habitus however at C7 there appeared to be a old fracture on the spinous process. However was an incomplete exam CT was obtained which confirmed the old fracture as well as an additional 1 on T1. This is probably why he has spinous processes discomfort with palpation in this area. The patient was given Flexeril one dose here in the emergency room as well as 30 mg of IM Toradol minimal improvement is my hopes that he gets better improvement at home as he rests his neck. Departure - Departure Time of Disposition: 09:56 Disposition: Home, Self-Care 01 Clinical Impression: Cervical strain - Discharge Information Prescriptions: Cyclobenzaprine [Flexeril] 10 mg PO BEDTIME #5 tablet Referrals: Tamica Camarillo, [facility] [employer] [Primary Care Provider] - Forms: ED Department Discharge Additional Instructions: Follow-up with your regular provider in the blood pressure checked this next week Care Plan Goals: Return to the emergency room with any questions problems worsening symptoms. Follow-up with your regular provider this next week. Ibuprofen 800 mg no more than 3 times daily take with meals. You been given a prescription for Flexeril take one every evening for the next 5 days. Allow 12 hours after using this medication before driving or returning to work. I do not know what other muscle relaxants you have at home to not take those in combination with the Flexeril. - My Orders Last 24 Hours: My Active Orders 08/23/17 07:31 Cervical Spine 2V or 3V [CR] Stat 08/23/17 08:44 Cervical Spine wo Cont [CT] Stat - Assessment/Plan Last 24 Hours: My Active Orders 08/23/17 07:31 Cervical Spine 2V or 3V [CR] Stat 08/23/17 08:44 Cervical Spine wo Cont [CT] Stat
[2017-08-23] MEDS ORDERED: Ketorolac 60 MG/2 ML SDV IM ONE (07:50)
[2017-08-23] MEDS ORDERED: Cyclobenzaprine 10 MG Tab PO ONE (08:43)
[2017-08-23] MEDS ORDERED: Ketorolac 30 MG/ML SDV IM ONE (08:43)
--- NOTE | 2017-08-24 12:54 | CR ---
Cervical spine: AP, lateral, odontoid and swimmer's views of the cervical spine were obtained. Comparison: Previous MRI cervical spine exam of 07/23/16. Vertebral body heights and disc spaces are maintained. Prevertebral soft tissues are normal. No subluxation or fracture is seen. Impression: 1. No abnormality is appreciated on four-view cervical spine study. Diagnostic code #1
--- NOTE | 2017-08-24 17:27 | CT ---
CT cervical spine Technique: Multiple axial sections were obtained from above C1 inferiorly to the bottom of T1. Reconstructed sagittal and coronal images were reviewed. Comparison: No prior CT cervical spine study, previous MRI cervical spine exam of 08/02/16 is available. Findings: Mastoid sinuses and middle ear cavities are clear. Posterior skull base is intact. Vertebral body heights and disc spaces are maintained. Broad-based disc herniation appears to be present at C2-C3 which is an interval change from prior MRI. No cervical spine fracture is seen. No bony central or bony neural foraminal stenosis is seen. No abnormal subluxation seen on the reconstructed sagittal images. Detached distal spinous processes are noted at C7 and T1 compatible with old avulsion injuries. Impression: 1. Possible broad-based disc herniation at C2-C3 as an interval change from prior MRI. Repeat MRI could confirm if clinically needed. 2. 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 3. No acute bony abnormality identified on CT study of the cervical spine. Diagnostic code #3 Agree with preliminary report issued by [facility], additional finding as noted above of questionable disc herniation ([facility] preliminary report dictated on 08/23/17, 10:41 AM Central Time)
== END 2017-08-23 10:35 | disposition home or self-care (01) ==
LOC: JD.ED 07:05
DX: S16.1XXA Strain of muscle, fascia and tendon at neck level, initial encounter (principal); E78.00 Pure hypercholesterolemia, unspecified; I10 Essential (primary) hypertension; Z88.5 Allergy status to narcotic agent; Z91.041 Radiographic dye allergy status; Z79.899 Other long term (current) drug therapy; X58.XXXA Exposure to other specified factors, initial encounter
CPT/HCPCS: 72040; 72125; 96372; 99284; A9270; J1885; 99283

== ENCOUNTER 2017-10-27 07:13 | Emergency (ER) | payer OTHER ==
--- NOTE | 2017-10-27 07:29 | EDM.PDOC ---
ED HPI GENERAL MEDICAL PROBLEM - General Chief Complaint: Flank Pain Stated Complaint: RIGHT SIDE PAIN Time Seen by Provider: 10/27/17 07:29 - History of Present Illness INITIAL COMMENTS - FREE TEXT/NARRATIVE: 42-year-old male presents emergency room with right-sided flank pain. This pain is begun on for over a month progressively getting worse. Is not associated with any fevers or chills he has not had any nausea vomiting constipation or diarrhea. Deep breathing does not make it worse. He has not experienced any shortness of breath the pain is not worsened with exertion. The patient is use some ibuprofen for this he takes about 400 mg daily this does not seem to be helping the patient tried some Tylenol earlier this morning. The pain seemed to be worse this morning that it has been he has not identified any triggers. Right Upper Abdomen Pain Score (Numeric/FACES): 9 - Related Data Allergies Allergy/AdvReac Type Severity Reaction Status Date / Time Iodinated Contrast- Oral and Allergy Mild Itching Verified 10/27/17 07:30 IV Dye [Iodinated Contrast Media - IV Dye] colchicine Allergy Other Verified 10/27/17 07:30 tramadol Allergy Other Verified 10/27/17 07:30 Home Meds: Home Meds Methylphenidate [Concerta] 54 mg PO DAILY 12/23/14 [History] Omeprazole 20 mg PO DAILY 12/23/14 [History] Venlafaxine [Effexor XR] 150 mg PO DAILY 12/23/14 [History] Gabapentin [Neurontin] 600 mg PO TID #90 cap 04/03/16 [Rx] Diltiazem [Cardizem CD] 240 mg PO DAILY 12/23/16 [History] Albuterol Sulfate [Proair Respiclick] 2 puff IH Q4H PRN 02/12/17 [History] Allopurinol [Zyloprim] 300 mg PO BEDTIME 02/12/17 [History] Rosuvastatin Calcium [Crestor] 40 mg PO BEDTIME 02/12/17 [History] Cholecalciferol (Vitamin D3) [Vitamin D3] 5,000 unit PO DAILY 06/30/17 [History] Orphenadrine [Norflex] 1 tab PO Q12H #10 tab.er 06/30/17 [Rx] Cyclobenzaprine [Flexeril] 10 mg PO BEDTIME #5 tablet 08/23/17 [Rx] Past Medical History HEENT History: Reports: Allergic Rhinitis, Sinusitis, Other (See Below) Other HEENT History: TMJ Cardiovascular History: Reports: High Cholesterol, Hypertension Respiratory History: Reports: Sleep Apnea Other Respiratory History: Costochondral pain Gastrointestinal History: Reports: Other (See Below) Other Gastrointestinal History: Left upper quadrant abdominal pain Genitourinary History: Reports: None Other Genitourinary History: Testicular hypofunction Musculoskeletal History: Reports: Back Pain, Chronic, Gout (presumed) Other Musculoskeletal History: Cubital tunnel syndrome, right knee pain, acute medial meniscus tear Neurological History: Reports: None Psychiatric History: Reports: Anxiety, Depression Endocrine/Metabolic History: Reports: Obesity/BMI 30+ Other Endocrine/Metabolic History: Thyroid nodule, elevated parathyroid hormone Hematologic History: Reports: None Immunologic History: Reports: None Oncologic (Cancer) History: Reports: None Dermatologic History: Reports: Other (See Below) Other Dermatologic History: Pilonidal cyst - Infectious Disease History Infectious Disease History: Reports: None - Past Surgical History HEENT Surgical History: Reports: Adenoidectomy, Tonsillectomy GI Surgical History: Reports: Hernia, Abdominal Neurological Surgical History: Reports: Lumbar Spine Musculoskeletal Surgical History: Reports: Arthroscopic Knee (right, x 2), Carpal Tunnel (bilateral), Shoulder Surgery (right, 1 open, 7 arthroscopic), Other (See Below) (Right clavicle surgery. Neuostimulator implant.) Social & Family History - Family History Family Medical History: Noncontributory - Tobacco Use Smoking Status *Q: Never Smoker Years of Tobacco use: 10 Packs/Tins Daily: 1 Used Tobacco, but Quit: Yes Month Tobacco Last Used: 1 Second Hand Smoke Exposure: No - Caffeine Use Caffeine Use: Reports: Soda - Alcohol Use Days Per Week of Alcohol Use: 7 Number of Drinks Per Day: 4 Total Drinks Per Week: 28 - Recreational Drug Use Recreational Drug Use: No Drug Use in Last 12 Months: No - Living Situation & Occupation Living situation: Reports: , with Spouse, with Family (2 kids) Occupation: Employed ([employer]) ED ROS GENERAL - Review of Systems Review Of Systems: See Below Constitutional: Reports: No Symptoms HEENT: Reports: No Symptoms Respiratory: Denies: Shortness of Breath, Wheezing, Cough, Sputum, Hemoptysis GI/Abdominal: Reports: Abdominal Pain. Denies: Constipation, Diarrhea, Nausea, Vomiting : Reports: Flank Pain. Denies: No Symptoms Skin: Reports: No Symptoms Neurological: Reports: No Symptoms ED EXAM, GI/ABD - Physical Exam Exam: See Below Exam Limited By: No Limitations General Appearance: Alert, No Apparent Distress Head: Atraumatic, Normocephalic Neck: Normal Inspection, Supple, Non-Tender, Full Range of Motion Respiratory/Chest: No Respiratory Distress, Lungs Clear, Normal Breath Sounds Cardiovascular: Regular Rate, Rhythm, No Edema, No Murmur GI/Abdominal Exam: Normal Bowel Sounds, Soft, No Distention, No Abnormal Bruit, Tender (Right upper quadrant tenderness could very well be muscle skeletal in origin). No: Guarding, Rigid, Rebound Back Exam: Normal Inspection, Other (This pain is along the right ribs anterior lateral extending into the musculature of the upper right abdomen). No: CVA Tenderness (L), CVA Tenderness (R), Paraspinal Tenderness, Vertebral Tenderness Extremities: Normal Inspection, No Pedal Edema Course - Vital Signs Last Recorded V/S: Last Vital Signs Temp 36.4 C 10/27/17 07:26 Pulse 112 H 10/27/17 07:26 Resp 20 10/27/17 07:26 BP 147/97 H 10/27/17 07:26 Pulse Ox 95 10/27/17 07:26 - Orders/Labs/Meds Orders: Active Orders 24 hr Category Date Time Status EKG Documentation Completion [RC] ASDIRECTED Care 10/27/17 07:44 Active Chest 2V [CR] Stat Exams 10/27/17 07:41 Taken URINALYSIS W/MICROSCOPIC [UA W/MICROSCOPIC] [URIN] Stat Lab 10/27/17 09:03 Results EKG 12 Lead [EK] Stat Ther 10/27/17 07:44 Ordered Labs: Laboratory Tests 10/27/17 10/27/17 10/27/17 Range/Units 07:47 07:47 07:47 WBC 7.41 (4.23-9.07) K/mm3 RBC 5.85 (4.63-6.08) M/mm3 Hgb 15.9 (13.7-17.5) gm/L Hct 46.9 (40.1-51.0) % MCV 80.2 (79.0-92.2) fl MCH 27.2 (25.7-32.2) pg MCHC 33.9 (32.2-35.5) g/dl RDW Std Deviation 41.2 (35.1-43.9) fL Plt Count 282 (163-337) K/mm3 MPV 9.2 L (9.4-12.3) fl Neutrophils % (Manual) 81 H (40-60) % Band Neutrophils % 0 (0-10) % Lymphocytes % (Manual) 11 L (20-40) % Atypical Lymphs % 0 % Monocytes % (Manual) 3 (2-10) % Eosinophils % (Manual) 5 (0.8-7.0) % Basophils % (Manual) 0 L (0.2-1.2) Platelet Estimate Adequate RBC Morph Comment Normal D-Dimer, Quantitative < 0.19 L (0.19-0.59) mg/L Sodium 136 (136-145) mEq/L Potassium 4.1 (3.5-5.1) mEq/L Chloride 101 (98-107) mEq/L Carbon Dioxide 24 (21-32) mEq/L Anion Gap 15.1 H (5-15) BUN 13 (7-18) mg/dL Creatinine 1.0 (0.7-1.3) mg/dL Est Cr Clr Drug Dosing 98.19 mL/min Estimated GFR (MDRD) > 60 (>60) mL/min BUN/Creatinine Ratio 13.0 L (14-18) Glucose 90 (74-106) mg/dL Calcium 9.0 (8.5-10.1) mg/dL Total Bilirubin 0.7 (0.2-1.0) mg/dL AST 21 (15-37) U/L ALT 46 (16-63) U/L Alkaline Phosphatase 83 (46-116) U/L Troponin I < 0.017 (0.00-0.056) ng/mL C-Reactive Protein < 0.2 (<1.0) mg/dL Total Protein 8.0 (6.4-8.2) g/dl Albumin 3.8 (3.4-5.0) g/dl Globulin 4.2 gm/dL Albumin/Globulin Ratio 0.9 L (1-2) Urine Color (Yellow) Urine Appearance (Clear) Urine pH (5.0-8.0) Ur Specific [place] (1.005-1.030) Urine Protein (Negative) Urine Glucose (UA) (Negative) Urine Ketones (Negative) Urine Occult Blood (Negative) Urine Nitrite (Negative) Urine Bilirubin (Negative) Urine Urobilinogen (0.2-1.0) Ur Leukocyte Esterase (Negative) 10/27/17 Range/Units 09:03 WBC (4.23-9.07) K/mm3 RBC (4.63-6.08) M/mm3 Hgb (13.7-17.5) gm/L Hct (40.1-51.0) % MCV (79.0-92.2) fl MCH (25.7-32.2) pg MCHC (32.2-35.5) g/dl RDW Std Deviation (35.1-43.9) fL Plt Count (163-337) K/mm3 MPV (9.4-12.3) fl Neutrophils % (Manual) (40-60) % Band Neutrophils % (0-10) % Lymphocytes % (Manual) (20-40) % Atypical Lymphs % % Monocytes % (Manual) (2-10) % Eosinophils % (Manual) (0.8-7.0) % Basophils % (Manual) (0.2-1.2) Platelet Estimate RBC Morph Comment D-Dimer, Quantitative (0.19-0.59) mg/L Sodium (136-145) mEq/L Potassium (3.5-5.1) mEq/L Chloride (98-107) mEq/L Carbon Dioxide (21-32) mEq/L Anion Gap (5-15) BUN (7-18) mg/dL Creatinine (0.7-1.3) mg/dL Est Cr Clr Drug Dosing mL/min Estimated GFR (MDRD) (>60) mL/min BUN/Creatinine Ratio (14-18) Glucose (74-106) mg/dL Calcium (8.5-10.1) mg/dL Total Bilirubin (0.2-1.0) mg/dL AST (15-37) U/L ALT (16-63) U/L Alkaline Phosphatase (46-116) U/L Troponin I (0.00-0.056) ng/mL C-Reactive Protein (<1.0) mg/dL Total Protein (6.4-8.2) g/dl Albumin (3.4-5.0) g/dl Globulin gm/dL Albumin/Globulin Ratio (1-2) Urine Color Yellow (Yellow) Urine Appearance Clear (Clear) Urine pH 5.5 (5.0-8.0) Ur Specific [place] > or = 1.030 (1.005-1.030) Urine Protein Negative (Negative) Urine Glucose (UA) Negative (Negative) Urine Ketones Negative (Negative) Urine Occult Blood Negative (Negative) Urine Nitrite Negative (Negative) Urine Bilirubin 1+ H (Negative) Urine Urobilinogen 0.2 (0.2-1.0) Ur Leukocyte Esterase Negative (Negative) Meds: Medications Discontinued Medications Generic Name Dose Route Start Last Admin Trade Name Freq PRN Reason Stop Dose Admin Lactated Ringer's 1,000 mls @ 999 mls/hr 10/27/17 07:45 10/27/17 07:55 Ringers, Lactated IV 10/27/17 08:45 999 mls/hr .BOLUS ONE Administration Ketorolac Tromethamine 30 mg 10/27/17 07:45 10/27/17 07:55 Toradol IVPUSH 10/27/17 07:46 30 mg ONETIME ONE Administration - Re-Assessments/Exams Free Text/Narrative Re-Assessment/Exam: 10/27/17 07:50 The patient has had multiple vague complaints regarding abdominal pain here in the past with extensive workups that are unrevealing. We'll check some labs given some IV fluids and Toradol. 10/27/17 10:03 Labs unrevealing chest x-ray normal patient will be set up for an outpatient gallbladder ultrasound however I suspect a lot of his symptoms are due to muscle skeletal strain in the right lower chest and right upper quadrant of the abdomen. He'll increase his ibuprofen and add Tylenol if needed. Departure - Departure Time of Disposition: 09:58 Disposition: Home, Self-Care 01 Clinical Impression: Chest wall pain, Abdominal wall pain, Right upper quadrant pain - Discharge Information Referrals: Tamica Camarillo [facility] [Primary Care Provider] - Forms: ED Department Discharge Additional Instructions: Return to emergency room if any questions problems worsening symptoms. You'll be arranged to have a gallbladder ultrasound done. Follow-up with your regular provider a couple of days after this is done to get the results. Use ibuprofen 600 mg 3 times a day with meals and see if this helps with the discomfort. Tylenol 650 mg 4 times a day can often be beneficial as well. - My Orders Last 24 Hours: My Active Orders 10/27/17 07:41 Chest 2V [CR] Stat 10/27/17 07:44 EKG Documentation Completion [RC] ASDIRECTED EKG 12 Lead [EK] Stat 10/27/17 09:03 URINALYSIS W/MICROSCOPIC [UA W/MICROSCOPIC] [URIN] Stat - Assessment/Plan Last 24 Hours: My Active Orders 10/27/17 07:41 Chest 2V [CR] Stat 10/27/17 07:44 EKG Documentation Completion [RC] ASDIRECTED EKG 12 Lead [EK] Stat 10/27/17 09:03 URINALYSIS W/MICROSCOPIC [UA W/MICROSCOPIC] [URIN] Stat
[2017-10-27 07:30] VITALS: BP 147/97
[2017-10-27] MEDS ORDERED: Lactated Ringers 1,000 ML IV ONE (07:45)
[2017-10-27] MEDS ORDERED: Ketorolac 30 MG/ML SDV IVPUSH ONE (07:45)
--- NOTE | 2017-10-27 10:12 | CR ---
Chest: Two views of the chest were obtained. Comparison: Previous chest x-ray of 10/31/15. Heart size and mediastinum are within normal limits. Lungs are clear. Bony structures are unremarkable for the patient's age. Impression: 1. Nothing acute is seen on two-view chest x-ray. Diagnostic code #1
== END 2017-10-27 10:12 | disposition home or self-care (01) ==
LOC: JD.ED 07:13
DX: R07.89 Other chest pain (principal); R10.11 Right upper quadrant pain; I10 Essential (primary) hypertension; E78.00 Pure hypercholesterolemia, unspecified; F32.9 Major depressive disorder, single episode, unspecified; Z87.891 Personal history of nicotine dependence; Z79.899 Other long term (current) drug therapy; Z88.5 Allergy status to narcotic agent; Z91.041 Radiographic dye allergy status
CPT/HCPCS: 36415; 71046; 80053; 81001; 84484; 85025; 85379; 86140; 93005; 96361; 96374; 99284; J1885; J7120

== ENCOUNTER 2018-10-15 16:06 | Emergency (ER) | payer OTHER ==
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
--- NOTE | 2018-10-15 17:06 | CT ---
Head CT Technique: Multiple axial sections through the brain were obtained. Intravenous contrast was not utilized. Comparison: No prior head CT study. Findings: Ventricles along with basal cisterns and sulci over the convexities are within normal limits. Focal low density finding is seen within the left basal ganglia either due to old lacunar infarct or prominent perivascular space. No other abnormal parenchymal densities are seen. No evidence of intracranial hemorrhage. No midline shift or mass effect is seen. Bone window settings were reviewed which shows no acute calvarial abnormality. Visualized sinuses are clear. Impression: 1. Nothing acute is appreciated on noncontrast head CT exam. Diagnostic code #2
--- NOTE | 2018-10-15 17:06 | CT ---
CT cervical spine Technique: Multiple axial sections through the cervical spine were obtained. Reconstructed coronal and sagittal images were reviewed. Comparison: Previous CT cervical spine study of 08/23/17. Findings: Broad-based disc herniation appears to be present at C2-C3 which appears stable from previous exam. Mild posterior disc bulge at C3-C4 is noted. Mild disc space narrowing is noted at C4-C5 as well as C5-C6. Vertebral body heights are maintained. 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 No acute fracture is seen. No bony central or bony neural foraminal stenosis is seen. No abnormal subluxation is appreciated. Mild degenerative change seen within the lower apophyseal joints. Impression: 1. Mild degenerative change as noted above. 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 2. No acute abnormality is seen. No significant change is seen from previous exam. Diagnostic code #3
[2018-10-15] MEDS ORDERED: Ondansetron 4 MG Tab.DIS PO ONE (17:42)
[2018-10-15] MEDS ORDERED: Acetaminophen/oxyCODONE 325-5 MG Tab PO ONE (17:42)
[2018-10-15 17:55] VITALS: BP 137/91
== END 2018-10-15 18:02 | disposition home or self-care (01) ==
LOC: JD.ED 16:06
DX: S13.9XXA Sprain of joints and ligaments of unspecified parts of neck, initial encounter (principal); I10 Essential (primary) hypertension; E78.00 Pure hypercholesterolemia, unspecified; F41.9 Anxiety disorder, unspecified; F32.9 Major depressive disorder, single episode, unspecified; Z88.5 Allergy status to narcotic agent; Z88.8 Allergy status to other drugs, medicaments and biological substances; Z91.041 Radiographic dye allergy status; Z79.899 Other long term (current) drug therapy; V49.69XA Unspecified car occupant injured in collision with other motor vehicles in traffic accident, initial encounter
CPT/HCPCS: 70450; 72125; 99284; A9270

== ENCOUNTER 2020-05-15 13:37 | Emergency (ER) | payer BC, OTHER ==
[2020-05-15 14:04] VITALS: BP 153/96; PULSE 96
[2020-05-15] MEDS ORDERED: Ketorolac 60 MG/2 ML SDV IM ONE (14:19)
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
--- NOTE | 2020-05-15 15:16 | CR ---
Left tibia and fibula: AP and lateral views of the left tibia and fibula were obtained. Comparison: No previous study. No fracture or other bony abnormality is appreciated. Impression: 1. Nothing acute is seen on 2 view left tibia and fibula exam. Diagnostic code #1 This report was dictated in MDT
--- NOTE | 2020-05-15 15:35 | CR ---
Lumbar spine: AP and lateral views of the lumbar spine were obtained. Comparison: Previous MRI lumbar spine study of 07/25/15 is available. Vertebral body heights and disc spaces are maintained. Minimal scoliosis is noted. Pedicles are intact. Visualized transverse and spinous processes are intact. No subluxation or fracture is seen. Surgical clips are seen from previous cholecystectomy. Impression: 1. Mild scoliosis. 2. Nothing acute is appreciated on two-view lumbar spine study. Diagnostic code #2 This report was dictated in MDT
== END 2020-05-15 15:45 | disposition home or self-care (01) ==
LOC: JD.ED 13:37
DX: S80.812A Abrasion, left lower leg, initial encounter (principal); M25.562 Pain in left knee; M54.5 Low back pain; F41.9 Anxiety disorder, unspecified; F32.9 Major depressive disorder, single episode, unspecified; M10.9 Gout, unspecified; E78.00 Pure hypercholesterolemia, unspecified; I10 Essential (primary) hypertension; E66.9 Obesity, unspecified; Z88.6 Allergy status to analgesic agent; Z88.8 Allergy status to other drugs, medicaments and biological substances; Z91.041 Radiographic dye allergy status; Z79.899 Other long term (current) drug therapy; Z68.42 Body mass index [BMI] 45.0-49.9, adult; W10.8XXA Fall (on) (from) other stairs and steps, initial encounter
CPT/HCPCS: 72100; 73590; 96372; 99283; J1885

== ENCOUNTER 2020-06-30 09:38 | Emergency (ER) | payer BC ==
[2020-06-30 10:08] VITALS: BP 132/91; PULSE 109
--- NOTE | 2020-06-30 10:36 | CR ---
PROCEDURE INFORMATION: Exam: XR Chest, 1 View Exam date and time: 06/30/2020 10:06 AM Age: 45 years old Clinical indication: Chest pain; Type not specified TECHNIQUE: Imaging protocol: XR of the chest Views: 1 view. COMPARISON: DX Chest 2V 10/27/2017 7:39 AM FINDINGS: Tubes, catheters and devices: Overlying EKG wires Lungs: No focal consolidation. . Pleural space: Unremarkable. No pleural effusion. No pneumothorax. Heart/Mediastinum: Cardiomegaly Bones/joints: Unremarkable. IMPRESSION: No focal consolidation. . Thank you for allowing us to participate in the care of your patient. Dictated and Authenticated by: Fransico Collins MD 06/30/2020 11:32 AM Central Time ([place] & [place]) [place]
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
== END 2020-06-30 13:15 | disposition home or self-care (01) ==
LOC: JD.ED 09:38
DX: J06.9 Acute upper respiratory infection, unspecified (principal); I10 Essential (primary) hypertension; E78.00 Pure hypercholesterolemia, unspecified; M10.9 Gout, unspecified; F41.9 Anxiety disorder, unspecified; F32.9 Major depressive disorder, single episode, unspecified; E66.9 Obesity, unspecified; Z68.42 Body mass index [BMI] 45.0-49.9, adult; Z87.891 Personal history of nicotine dependence; Z91.041 Radiographic dye allergy status; Z88.5 Allergy status to narcotic agent; Z88.8 Allergy status to other drugs, medicaments and biological substances; Z79.899 Other long term (current) drug therapy; Z20.828 Contact with and (suspected) exposure to other viral communicable diseases
CPT/HCPCS: 36415; 71045; 71045-26; 80053; 82728; 83605; 83615; 85025; 85379; 86140; 87081; 87430; 87804; 94762; 99282; 99285-25; U0002

== ENCOUNTER 2021-02-07 08:03 | Day surgery (SDC) | payer BC ==
--- NOTE | 2021-02-05 11:16 | PCM.PREANE ---
<Huong Aguilar - Last Filed: 02/07/21 10:25> Preanesthetic Assessment - Anesthesia/Transfusion/Family Hx Type of Anesthesia Reaction: Other (see below) (wakes up combative (history of this)) - Review of Systems General: No Symptoms Pulmonary: No Symptoms (Reactive Airway Disease/, History of hypoxemia at [facility], [place]: still snores but no CPAP since weight loss Smoker:Quit: 1998 2ppd times 17 years Chewing Tobacco: 7-10 cans of chew per week/ 1999 last night ETOH: 2 drinks per day times 7days/week. (last drank two nights ago.)), Cough (chronic/Hasn't used inhaler in two months.) Cardiovascular: No Symptoms, Palpitations Gastrointestinal: No Symptoms (GERD-controlled), Abdominal Pain (4/10 abdominal pain) Neurological: No Symptoms, Numbness (bilateral arms due to elbow compression) Other: Reports: Thyroid Problems (history of hypothyroid.), Sinus Problem, Anxiety - Physical Assessment NPO Status Time: 20:30 Weight: 121 kg Airway Class: Mallampati = 2 Dentition: Reports: Normal Dentition, Caries Thyro-Mental Finger Breadths: 3 ROM/Head Extension: Full Lungs: Clear to Auscultation, Normal Respiratory Effort Cardiovascular: Regular Rate, Regular Rhythm, No Murmurs - Imaging/EKG Impressions: CXR: unremarkable - Allergies Allergies/Adverse Reactions: Allergies Allergy/AdvReac Type Severity Reaction Status Date / Time Iodinated Contrast Media Allergy Mild Itching Verified 02/07/21 09:46 [Iodinated Contrast Media - IV Dye] tramadol Allergy Edema Verified 02/07/21 09:46 colchicine AdvReac Tachycardia Verified 02/07/21 09:46 - Anesthesia Plan Pre-Op Medication Ordered: Other PreAnesthesia Questionnaire - HOME MEDS Home Medications: Home Meds Methylphenidate [Concerta] 54 mg PO DAILY 12/23/14 [History] Omeprazole 20 mg PO DAILY 12/23/14 [History] Venlafaxine [Effexor XR] 150 mg PO DAILY 12/23/14 [History] Gabapentin [Neurontin] 600 mg PO TID #90 cap 04/03/16 [Rx] Diltiazem [Cardizem CD] 240 mg PO DAILY 12/23/16 [History] Albuterol Sulfate [Proair Respiclick] 2 puff IH Q4H PRN 02/12/17 [History] Allopurinol [Zyloprim] 300 mg PO BEDTIME 02/12/17 [History] Rosuvastatin Calcium [Crestor] 40 mg PO BEDTIME 02/12/17 [History] Losartan [Cozaar] 25 mg PO DAILY 05/15/20 [History] Acetaminophen [Tylenol Extra Strength] 500 - 1,000 mg PO Q4H PRN 02/06/21 [History] ClonazePAM [KlonoPIN] 0.5 - 1 mg PO DAILY 02/06/21 [History] Sildenafil [Revatio] 20 mg PO ASDIRECTED PRN 02/06/21 [History] Sildenafil Citrate [Viagra] 25 mg PO DAILY PRN 02/07/21 [History] <Radha Ye - Last Filed: 02/07/21 11:35> Preanesthetic Assessment - Procedure Proposed Procedure: Laparoscopic umbilical hernia repair with mesh, and possible laparoscopic ventral hernia repair with mesh, and possible laparoscopic bilateral inguinal hernia repair with mesh. - Anesthesia/Transfusion/Family Hx Anesthesia History: Prior Anesthesia Without Reaction Family History of Anesthesia Reaction: No Transfusion History: No Prior Transfusion(s) Intubation History: History of Difficulty Intubation (hx of "small wind pipe", have "to use a womens breathing tube." ) - Review of Systems Pulmonary: No Symptoms (Reactive Airway Disease, History of hypoxemia at [facility], [place]: Smoker:Quit: 1998 2ppd times 8 years Chewing Tobacco: ETOH: 4 drinks per day times 7days/week.), Cough (chronic) Cardiovascular: No Symptoms (HTN, elevated cholesterol, ), Dyspnea on Exertion Gastrointestinal: No Symptoms (GERD) Neurological: No Symptoms (history of lower back pain:) Other: Reports: Thyroid Problems (Hypothyroidism), Sinus Problem (Allergic rhin itis), Depression, Anxiety (History of ADD) - Physical Assessment NPO Status Date: 02/06/21 Vital Signs: HR: Sat: Temp: B/P: Resp: Height: 1.78 m ASA Class: 3 Mental Status: Alert & Oriented x3 Mouth Opening Finger Breadths: 3 (History of TMJ) - Lab Values: All labs reviewed and noted and within acceptable ranges to proceed with scheduled procedure. - Imaging/EKG Impressions: EKG: SR rate= 76. CXR: - Anesthesia Plan Pre-Op Medication Ordered: None, Other (Tylenol 1000mg P.O in preop, Albuterol nebulizer in preop.) - Acknowledgements Anesthesia Type Planned: General Anesthesia Pt an Appropriate Candidate for the Planned Anesthesia: Yes Alternatives and Risks of Anesthesia Discussed w Pt/Guardian: Yes Pt/Guardian Understands and Agrees with Anesthesia Plan: Yes PreAnesthesia Questionnaire HEENT History: Reports: Allergic Rhinitis, Sinusitis, Other (See Below) Other HEENT History: TMJ Cardiovascular History: Reports: High Cholesterol, Hypertension Respiratory History: Reports: Sleep Apnea, Other (See Below) Other Respiratory History: Costochondral pain Gastrointestinal History: Reports: Other (See Below) Other Gastrointestinal History: Left upper quadrant abdominal pain Genitourinary History: Reports: Other (See Below) Other Genitourinary History: Testicular hypofunction Musculoskeletal History: Reports: Back Pain, Chronic, Gout, Other (See Below) Other Musculoskeletal History: Cubital tunnel syndrome, right knee pain, acute medial meniscus tear Neurological History: Reports: None Psychiatric History: Reports: Anxiety, Depression Endocrine/Metabolic History: Reports: Obesity/BMI 30+ Other Endocrine/Metabolic History: Thyroid nodule, elevated parathyroid hormone Hematologic History: Reports: None Immunologic History: Reports: None Oncologic (Cancer) History: Reports: None Dermatologic History: Reports: Other (See Below) Other Dermatologic History: Pilonidal cyst - Past Surgical History Head Surgeries/Procedures: Reports: None HEENT Surgical History: Reports: Adenoidectomy, Tonsillectomy Other HEENT Surgeries/Procedures: Adnoidectomy Cardiovascular Surgical History: Reports: None Respiratory Surgical History: Reports: None GI Surgical History: Reports: Hernia, Abdominal Other GI Surgeries/Procedures: hernia repair with mesh 12/16/15 Male Surgical History: Reports: None Other Male Surgeries/Procedures: sexual dysfunction Endocrine Surgical History: Reports: None Neurological Surgical History: Reports: Lumbar Spine Musculoskeletal Surgical History: Reports: Arthroscopic Knee, Carpal Tunnel, Shoulder Surgery, Other (See Below) Other Musculoskeletal Surgeries/Procedures:: Right shoulder surgery X 8; Right knee surgery X 2. Oncologic Surgical History: Reports: None Dermatological Surgical History: Reports: None - CURRENT (IN HOUSE) MEDS Current Meds: Current Medications Acetaminophen (Acetaminophen 325 Mg Tab) 975 mg PO ONETIME ALIN Stop: 02/07/21 16:00 Last Admin: 02/07/21 08:40 Dose: 975 mg Documented by: Albuterol (Albuterol 0.083% 2.5 Mg/3 Ml Neb Soln) 2.5 mg NEB ONETIME PRN PRN Reason: morbid obesity/preoperative Stop: 02/07/21 16:00 Last Admin: 02/07/21 08:29 Dose: 2.5 mg Documented by: Lactated Ringer's (Ringers, Lactated) 1,000 mls @ 125 mls/hr IV ASDIRECTED ALIN Stop: 02/07/21 23:00 Last Admin: 02/07/21 08:37 Dose: 125 mls/hr Documented by: Lidocaine/Sodium Bicarbonate (Lidocaine 1%/Sod Bicarbonate In Ns 8.4% 1 Ml Syringe) 0.25 ml IDERM ONETIME PRN PRN Reason: Prior to IV Start Stop: 02/07/21 18:00 Last Admin: 02/07/21 08:37 Dose: 0.25 ml Documented by: Sodium Chloride (Sodium Chloride 0.9% 10 Ml Syringe) 10 ml FLUSH ASDIRECTED PRN PRN Reason: Keep Vein Open Stop: 02/07/21 18:00 Discontinued Medications Bupivacaine HCl/Epinephrine Bitart (Bupivacaine 0.5%/Epinephrine 1:200,000 50 Ml Mdv) Confirm Administered Dose 50 ml .ROUTE .STK-MED ONE Stop: 02/07/21 09:14 Cefazolin Sodium (Cefazolin 1 Gm Vial) Confirm Administered Dose 3 gm .ROUTE .STK-MED ONE Stop: 02/07/21 07:35 Dexamethasone (Dexamethasone 4 Mg/Ml 5 Ml Mdv) Confirm Administered Dose 20 mg .ROUTE .STK-MED ONE Stop: 02/07/21 07:35 Dexmedetomidine HCl (Dexmedetomidine 200 Mcg/2 Ml Sdv) Confirm Administered Dose 200 mcg .ROUTE .STK-MED ONE Stop: 02/07/21 07:35 Fentanyl (Fentanyl 250 Mcg/5 Ml Sdv) Confirm Administered Dose 250 mcg .ROUTE .STK-MED ONE Stop: 02/07/21 07:36 Hydromorphone HCl (Hydromorphone 0.5 Mg/0.5 Ml Syringe) Confirm Administered Dose 0.5 mg .ROUTE .STK-MED ONE Stop: 02/07/21 07:35 Lidocaine HCl (Xylocaine-Mpf 1%) Confirm Administered Dose 4 mls @ as directed .ROUTE .STMeeting To You-MED ONE Stop: 02/07/21 07:35 Sodium Chloride (Normal Saline) Confirm Administered Dose 100 mls @ as directed .ROUTE .Meeting To You-MED ONE Stop: 02/07/21 07:35 Lactated Ringer's (Ringers, Lactated) Confirm Administered Dose 500 mls @ as directed .ROUTE .[email or web address] ONE Stop: 02/07/21 07:35 Ketorolac Tromethamine (Ketorolac 30 Mg/Ml Sdv) Confirm Administered Dose 30 mg .ROUTE .STMeeting To You-MED ONE Stop: 02/07/21 07:35 Lidocaine/Epinephrine (Lidocaine 1% With Epinephrine 1:100,000 10 Ml Mdv) Confirm Administered Dose 30 ml .ROUTE .Meeting To You-MED ONE Stop: 02/07/21 09:13 Midazolam HCl (Midazolam 1 Mg/Ml 2 Ml Sdv) Confirm Administered Dose 2 mg .ROUTE .STMeeting To You-MED ONE Stop: 02/07/21 07:36 Ondansetron HCl (Ondansetron 4 Mg/2 Ml Sdv) Confirm Administered Dose 4 mg .ROUTE .Meeting To You-MED ONE Stop: 02/07/21 07:35 Propofol (Propofol 200 Mg/20 Ml Sdv) Confirm Administered Dose 400 mg .ROUTE .ST Meeting To You-MED ONE Stop: 02/07/21 07:35 Propofol (Propofol 200 Mg/20 Ml Sdv) Confirm Administered Dose 200 mg .ROUTE .[email or web address] ONE Stop: 02/07/21 08:44 Rocuronium [place] (Rocuronium 50 Mg/5 Ml Vial) Confirm Administered Dose 50 mg .ROUTE .STMeeting To You-MED ONE Stop: 02/07/21 07:35
[~2021-02-07 08:03] MED LIST changes: +Acetaminophen 325 MG Tab PO SCH; +Albuterol 0.083% 2.5 MG/3 ML Neb Soln NEB PRN; +Dexamethasone 4 MG/ML 5 ML MDV ONE; +Dexmedetomidine 200 MCG/2 ML SDV ONE; +HYDROmorphone 0.5 MG/0.5 ML Syringe ONE; +Ketorolac 30 MG/ML SDV ONE; +Lactated Ringers 0 ML ONE; +Lidocaine 1% 4 ML ONE; +Lidocaine 1%/Sod Bicarbonate in NS 8.4% 1 ML Syringe IDERM PRN; -Lidocaine 1%/Sod Bicarbonate in NS 8.4% 1 ML Syringe PRN; +Midazolam 1 MG/ML 2 ML SDV ONE; +Ondansetron 4 MG/2 ML SDV ONE; +Propofol 200 MG/20 ML SDV ONE; +Rocuronium 50 MG/5 ML Vial ONE; +Sodium Chloride 0.9% 0 ML ONE; +Succinylcholine/Sod PF 100 MG/5 ML SYRINGE IV ONE; +ceFAZolin 1 GM Vial ONE; +fentaNYL 250 MCG/5 ML SDV ONE
[2021-02-07] MEDS ORDERED: Propofol 200 MG/20 ML SDV ONE (08:43)
[2021-02-07] MEDS ORDERED: Lidocaine 1% with EPINEPHrine 1:100,000 10 ML MDV ONE (09:12)
[2021-02-07] MEDS ORDERED: Bupivacaine 0.5%/EPINEPHrine 1:200,000 50 ML MDV ONE (09:13)
[2021-02-07] MEDS ORDERED: Etomidate 2 MG/ML 20 ML SDV IVPUSH ONE (10:54)
--- NOTE | 2021-02-07 11:35 | PCM48HPAN ---
Post Anesthesia Note - EVALUATION WITHIN 48HRS OF ANESTHETIC Vital Signs in Normal Range: Yes Patient Participated in Evaluation: Yes Respiratory Function Stable: Yes Airway Patent: Yes Cardiovascular Function Stable: Yes Hydration Status Stable: Yes Pain Control Satisfactory: Yes Nausea and Vomiting Control Satisfactory: Yes Mental Status Recovered: Yes Vital Signs: Last Vital Signs Temp 98.6 02/07/21 1115 Pulse 79 02/07/21 1115 Resp 12 02/07/21 1115 BP 109/54 02/07/21 1115 Pulse Ox 95% 02/07/21 1115
--- NOTE | 2021-02-07 11:59 | PCM.PRNOTE ---
- Free Text/Narrative Note: The patient was brought to the OR and had administration of Versed and Fetanyl, but had hypotension. This did not adequately respond to Phenylephrine or Ephedrine. The procedure was terminated due to risk of hypotension throughout the procedure. He was transported back to the preoperative area.
--- NOTE | 2021-02-07 12:03 | PCM.SN.2 ---
- Free Text/Narrative Note: ANESTHESIA NOTE: Patient taken to MOB 4 for scheduled procedure. Patient moved over to OR bed per self. Patient positioned, all pressure points checked and padded and patient verbalized comfort. Monitors/alarms placed and patient preoxygenated on 100% for entire time in the OR. IV sedation initiated: 100mcg of fentanyl/ 2mg of versed......Patient's blood pressure noted to drop 80's/39. Vasoconstrictors trialed IV to assess reponse: phenylephrine 200mcg/ ephedrine 10mg. RESPONSE: minimally noted and not adequate to continue safely with induction and potentially a long surgical procedure. Dr. Cipriano Davis notified and informed of situation and agreed mutually for patient to have an extensive work up in regards to low blood pressure with poor response to vasoconstrictors. Patient Investigation noted: patient has experienced within the past 3 years a 30kg weight loss. ( 150kg to 121kg) states he has been taking supplements. This was discovered by asking patient's while patient was still in OR. Upon arrival to recovery room, present and risks of proceeding with surgery explained. Dr. Cipriano Davis present and further evaluation with an internal medicine physician advised. expresses understanding and verbalizes gratitude in regards to keeping safe. Thank you. Radha ANTONIO
[2021-02-07] MEDS ORDERED: Lactated Ringers 1,000 ML ONE (12:30)
[2021-02-07] MEDS ORDERED: ePHEDrine 50 MG/ML SDV ONE (12:32)
[2021-02-07 13:34] VITALS: BP 97/62; PULSE 61
== END 2021-02-07 13:47 | disposition home or self-care (01) ==
LOC: JD.SDS 08:03
PROVIDERS: ATTEND Surgery
DX: K42.9 Umbilical hernia without obstruction or gangrene (principal); Z53.09 Procedure and treatment not carried out because of other contraindication; I95.9 Hypotension, unspecified; I10 Essential (primary) hypertension; E78.5 Hyperlipidemia, unspecified; F17.210 Nicotine dependence, cigarettes, uncomplicated; G89.18 Other acute postprocedural pain; G47.33 Obstructive sleep apnea (adult) (pediatric); E78.00 Pure hypercholesterolemia, unspecified; E66.9 Obesity, unspecified; Z01.812 Encounter for preprocedural laboratory examination; Z20.822 Contact with and (suspected) exposure to COVID-19; Z98.890 Other specified postprocedural states; Z88.5 Allergy status to narcotic agent
CPT/HCPCS: 36415; 49652; 80053; 84443; 85025; 85610; 94640; A9270; J0690; J1100; J2250; J2370; J3010; J3490; J7120; 00790; J0330; J1170; J1885; J2405; J2704

== ENCOUNTER 2021-10-31 16:26 | Emergency (ER) | payer BC ==
[2021-10-31 17:16] VITALS: BP 124/95; PULSE 89
== END 2021-10-31 17:30 | disposition home or self-care (01) ==
LOC: JD.ED 16:26
DX: F11.23 Opioid dependence with withdrawal (principal); T40.411A Poisoning by fentanyl or fentanyl analogs, accidental (unintentional), initial encounter; E78.00 Pure hypercholesterolemia, unspecified; I10 Essential (primary) hypertension; M10.9 Gout, unspecified; E66.9 Obesity, unspecified; Z68.32 Body mass index [BMI] 32.0-32.9, adult; Z91.041 Radiographic dye allergy status; Z88.5 Allergy status to narcotic agent; Z88.8 Allergy status to other drugs, medicaments and biological substances; Z86.16 Personal history of COVID-19; Z72.0 Tobacco use
CPT/HCPCS: 99283

== ENCOUNTER 2021-10-31 23:51 | Emergency (ER) | payer BC | END 2021-11-01 00:02 | disposition left against medical advice (07) | LOC: JD.ED 23:51 | DX: Z53.21 Procedure and treatment not carried out due to patient leaving prior to being seen by health care provider (principal) ==

== ENCOUNTER 2025-02-14 06:53 | Emergency (ER) | payer BC, OTHER ==
[2025-02-14] MEDS: Acetaminophen/HYDROcodone 325-5 MG Tab PO ONE (07:43)
[2025-02-14 08:06] LABS: BASOPHILS PERCENT AUTO 0.5 % (0.0-1.0); EOSINOPHILS ABSOLUTE AUTO 0.1 K/mm3 (0.0-0.4); HEMATOCRIT 48.7 % (42.0-52.0); HEMOGLOBIN 16.3 gm/dl (14.0-18.0); IMMATURE GRAN ABSOLUTE AUTO 0.04 K/mm3 (0.00-0.05); IMMATURE GRAN PERCENT AUTO 0.5 % (0.0-0.4); LYMPHOCYTES ABSOLUTE AUTO 1.3 K/mm3 (1.0-4.8); LYMPHOCYTES PERCENT AUTO 16.8 % (24.0-44.0); MEAN CORPUSCULAR HGB CONC 33.5 g/dl (32.0-36.0); MEAN CORPUSCULAR VOLUME 83.5 fl (83.0-99.0); MEAN PLATELET VOLUME 8.7 fl (9.4-12.4); MONOCYTES ABSOLUTE AUTO 0.5 K/mm3 (0.0-0.8); MONOCYTES PERCENT AUTO 6.6 % (0.0-8.0); NEUTROPHILS ABSOLUTE AUTO 5.7 K/mm3 (1.8-7.7); NEUTROPHILS PERCENT AUTO 74.6 % (41.0-71.0); PLATELET COUNT,PLT 329 K/mm3 (150-400); RED BLOOD CELL COUNT 5.83 M/mm3 (4.52-5.90); WHITE BLOOD CELL COUNT,WBC 7.68 K/mm3 (3.9-11.3)
[2025-02-14 08:06] LABS: APPEARANCE,URINE CLEAR (Clear); BILIRUBIN,URINE NEGATIVE (Negative); COLOR,URINE YELLOW (Yellow); GLUCOSE,URINE NEGATIVE (Negative); KETONES,URINE NEGATIVE (Negative); LEUKOCYTE ESTERASE,URINE NEGATIVE (Negative); NITRITE,URINE NEGATIVE (Negative); OCCULT BLOOD,URINE NEGATIVE (Negative); PROTEIN,URINE NEGATIVE (Negative); UROBILINOGEN,URINE 0.2 (0.2-1.0)
[2025-02-14 08:41] LABS: A/G RATIO 0.9 (1-2); ANION GAP 14.2 (5-15); BILIRUBIN TOTAL 0.3 mg/dL (0.2-1.0); C-REACTIVE PROTEIN 0.41 mg/dL (<0.30); CALCIUM 9.2 mg/dL (8.5-10.1); EST CRCL DRUG DOSING (CG) 94.29 mL/min; POTASSIUM,K 4.2 mEq/L (3.5-5.1); PROTEIN TOTAL,TP 8.4 g/dl (6.4-8.2)
[2025-02-14] MEDS ORDERED: Sodium Chloride 0.9% 10 ML Syringe FLUSH PRN (09:04)
[2025-02-14] MEDS: diphenhydrAMINE 50 MG/ML SDV IVPUSH ONE (09:12)
[2025-02-14] MEDS: Iopamidol 612 MG/ML 100 ML Bottle IVPUSH ONE (09:28)
[2025-02-14] MEDS: Sodium Chloride 0.9% 10 ML Syringe FLUSH PRN (09:28)
[2025-02-14 09:34] LABS: C. TRACHOMATIS BY PCR NOT DETECTED; N. GONORRHOEAE BY PCR NOT DETECTED
[2025-02-14 11:59] VITALS: BP 148/99; PULSE 88
== END 2025-02-14 11:59 | disposition home or self-care (01) ==
LOC: JD.ED 06:53
DX: N50.812 Left testicular pain (principal); E66.9 Obesity, unspecified; Z86.16 Personal history of COVID-19; Z79.899 Other long term (current) drug therapy; Z91.041 Radiographic dye allergy status; Z88.6 Allergy status to analgesic agent; Z88.8 Allergy status to other drugs, medicaments and biological substances; Z68.42 Body mass index [BMI] 45.0-49.9, adult
CPT/HCPCS: 36415; 74177; 76870; 80053; 81003; 85025; 86140; 87491; 87591; 93975; 96374; 99284; A9270; J1200; Q9967

== ENCOUNTER 2025-02-23 11:47 | Day surgery (SDC) | payer OTHER ==
[2025-02-23] MEDS: Lactated Ringers 1,000 ML IV SCH (12:22)
[2025-02-23] MEDS ORDERED: Ondansetron 4 MG/2 ML SDV IVPUSH PRN (12:41)
[2025-02-23] MEDS ORDERED: Propofol 200 MG/20 ML SDV ONE ×2 (12:59→15:40)
[2025-02-23] MEDS ORDERED: dexmedeTOMIDine HCl 200 MCG/2 ML SDV ONE (12:59)
[2025-02-23] MEDS ORDERED: EPINEPHrine 1 MG/ML SDV ONE (13:24)
[2025-02-23] MEDS: Clindamycin Phosphate in D5W 900 MG in Premix Bag 1 BAG IV ONE (14:41)
[2025-02-23] MEDS ORDERED: Ondansetron 4 MG/2 ML SDV ONE (15:00)
[2025-02-23] MEDS ORDERED: Dexamethasone 4 MG/ML 5 ML MDV ONE (15:00)
[2025-02-23] MEDS: fentaNYL 100 MCG/2 ML SDV IVPUSH PRN (16:27)
[2025-02-23] MEDS: Acetaminophen/oxyCODONE 325-5 MG Tab PO SCH (17:30)
[2025-02-23 17:53] VITALS: BP 133/99; PULSE 78
== END 2025-02-23 18:15 | disposition home or self-care (01) ==
LOC: JD.SDS 11:47
PROVIDERS: ATTEND Surgery
DX: K38.8 Other specified diseases of appendix (principal); Z88.0 Allergy status to penicillin; Z88.8 Allergy status to other drugs, medicaments and biological substances; I10 Essential (primary) hypertension; Z87.891 Personal history of nicotine dependence; Z79.899 Other long term (current) drug therapy; F32.A Depression, unspecified
CPT/HCPCS: 44970; A9270; J0171; J0665; J0736; J1100; J2003; J2405; J2704; J3010; J7120; 00840; J1171; J3490